=== PATIENT | female | born 1955 | race African-American/Black ===

== ENCOUNTER 2020-04-14 13:07 | Inpatient (IN) | payer MEDICARE, MEDICAID ==
[~2020-04-14] VITALS: Ht 154.9 cm; Wt 69.9 kg
[2020-04-14] MEDS ORDERED: PANTOPRAZOLE 40 MG/10 ML VIAL INJ IV STA (13:22)
[2020-04-14] MEDS ORDERED: SODIUM CHLORIDE 0.9% 500 ML IVB ONE (13:22)
[2020-04-14] MEDS ORDERED: ONDANSETRON HCL 4 MG/2 ML VIAL IV ONE (13:30)
[2020-04-14] MEDS ORDERED: MORPHINE SULFATE 4 MG/ML SYR/VIAL IV ONE (13:30)
[2020-04-14 13:55] LABS: Basophils # (auto) 0 10 ^3/uL (0-0.2); Basophils % (auto) 0.4 % (0.0-2.0); Eosinophils # (auto) 0 10 ^3/uL (0-0.8); Eosinophils % (auto) 0.1 % (0.0-7.0); Hematocrit 45.4 % (36.0-46.0); Lymphocytes # (auto) 0.6 10 ^3/uL (0.4-5.4); Lymphocytes % (auto) 16.2 % (10.0-50.0); Mean Corpuscular Hemoglobin 33.9 pg (28.0-32.0); Mean Corpuscular Volume 102.8 fL (80.0-100.0); Monocytes # (auto) 0.3 10 ^3/uL (0-1.3); Neutrophils # (auto) 2.9 10 ^3/uL (1.6-8.6); Neutrophils % (auto) 74.3 % (37.0-80.0); Nucleated Red Blood Cells % 0.1 %; Platelet Count (auto) 162 10^3/uL (140-450); Red Blood Cells 4.41 10^6/uL (4.0-5.20); Red Cell Distribution Width 14.5 % (11.8-14.3); White Blood Cell 3.9 10^3/uL (4.4-10.8)
[2020-04-14 14:08] LABS: Albumin 3.6 g/dL (3.4-5.0); Calcium 9.4 mg/dL (8.5-10.1); Potassium 4.4 mmol/L (3.5-5.1)
[2020-04-14 14:13] LABS: BUN/Creatinine Ratio 11.3; Total Protein 7.7 g/dL (6.4-8.2)
[2020-04-14] MEDS ORDERED: cefTRIAXone 1GM/50ML D5W 50 ML IV ONE (14:45)
[2020-04-14] MEDS ORDERED: LISINOPRIL 10 MG TAB PO ONE (14:45)
[2020-04-14] MEDS ORDERED: DEXTROSE (50%) 50ML SYRG IV PRN (14:45)
[2020-04-14] MEDS ORDERED: METHOCARBAMOL 500 MG TAB PO PRN (14:45)
[2020-04-14] MEDS ORDERED: metroNIDAZOLE 500MG/100ML 100 ML IV ONE (14:45)
[2020-04-14] MEDS ORDERED: hydrALAZINE HCL 20 MG/ML VL IV PRN (14:45)
[2020-04-14] MEDS ORDERED: ALUM & MAG HYDROX-SIMETH LIQ(MAALOX) 30 ML PO PRN (15:00)
[2020-04-14] MEDS ORDERED: DOCUSATE SOD 100 MG CAP PO PRN (15:00)
[2020-04-14] MEDS ORDERED: NITROGLYCERIN 0.4 MG SL TAB SL PRN (15:00)
[2020-04-14] MEDS ORDERED: MORPHINE SULF INJ 2 MG/ML SYRINGE 1ML IV PRN (15:00)
[2020-04-14] MEDS ORDERED: HYDROcodone-ACET 5/325MG TAB PO PRN (15:00)
[2020-04-14 15:16] LABS: Urine Bacteria NONE SEEN /hpf (None Seen); Urine Blood Negative /uL (Negative); Urine Mucus FEW (None Seen); Urine Specific Gravity 1.017 (1.001-1.035); Urine WBC 2 /hpf (0 - 5)
[2020-04-14 15:24] LABS: Cholesterol 196 mg/dL (< 200); HDL Cholesterol 138 mg/dL (40-59); LDL Cholesterol 47 mg/dL (< 100); Triglycerides 82 mg/dL (< 150)
[2020-04-14] MEDS ORDERED: TIZA2CAP7 PO (15:27)
[2020-04-14] MEDS ORDERED: DOXY100C2 PO (15:27)
[2020-04-14] MEDS ORDERED: CHOL20007 PO (15:27)
[2020-04-14] MEDS ORDERED: IBUP600T27 PO (15:28)
[2020-04-14] MEDS ORDERED: HYDR-531 PO (15:28)
[2020-04-14 15:30] LABS: Alcohol, Urine < 3.0 mg/dL (0-10); Amphetamine Screen, Urine NEGATIVE (NEGATIVE); Barbiturate Scree,Urine NEGATIVE (NEGATIVE); Benzodiazephine Screen, Urine NEGATIVE (NEGATIVE); Cannabinoid Screen, Urine NEGATIVE (NEGATIVE); Cocaine Screen, Urine NEGATIVE (NEGATIVE); Opiate Scree,Urine POSITIVE (NEGATIVE); Phencyclidine Screen, Urine NEGATIVE (NEGATIVE)
[2020-04-14] MEDS: SODIUM CHLORIDE 0.9% 1,000 ML IV SCH (16:00)
[2020-04-14] MEDS: ACCU-CHEK COMFORT CURVE STRIP VI SCH ×2 (17:05→23:12)
[2020-04-14] MEDS: InsuLIN REG 1unit/0.01ml Soln (100units/ml) SC SCH ×2 (17:05→23:12)
--- NOTE | 2020-04-14 20:18 | NUR ---
Telemetry admit from ER TOM COLLINS admitted to Telemetry unit. Patient oriented to Tiffany Mcnally, primary RN, unit, room, bed, and unit policies regarding patient care and visiting hours. Patient now on continuous telemetry monitoring, tele box # [id number] and telemetry reading on arrival to unit is . Patient placed on bedside oxygen, weighed by bedscale and encouraged to call if they need something. All questions and concerns addressed, patient verbalized understanding. Note:
[2020-04-14] MEDS: MORPHINE SULF INJ 2 MG/ML SYRINGE 1ML IV PRN (22:55)
[2020-04-14 22:59] VITALS: BP 141/84
[2020-04-14] MEDS: metroNIDAZOLE 500MG/100ML 100 ML IV SCH (22:59)
[2020-04-14] MEDS: FAMOTIDINE 20 MG TAB PO SCH (23:16)
[2020-04-15] MEDS: LORazepam 0.5 MG TAB PO PRN ×2 (03:07→16:05)
[2020-04-15] MEDS: SODIUM CHLORIDE 0.9% 1,000 ML IV SCH ×2 (04:57→09:32)
[2020-04-15 05:21] VITALS: BP 137/83
[2020-04-15] MEDS: metroNIDAZOLE 500MG/100ML 100 ML IV SCH (05:50)
[2020-04-15] MEDS: ACCU-CHEK COMFORT CURVE STRIP VI SCH (06:39)
[2020-04-15] MEDS: InsuLIN REG 1unit/0.01ml Soln (100units/ml) SC SCH (06:40)
--- NOTE | 2020-04-15 08:05 | NUR ---
Patient in bathroom at this time. Will return for assessment.
[2020-04-15] MEDS ORDERED: cefTRIAXone 1GM/50ML D5W 50 ML IV SCH (09:00)
[2020-04-15 09:01] VITALS: BP 141/89
[2020-04-15] MEDS: FAMOTIDINE 20 MG TAB PO SCH (09:30)
[2020-04-15] MEDS: LISINOPRIL 10 MG TAB PO SCH (09:30)
--- NOTE | 2020-04-15 09:30 | NUR ---
Scheduled po medications and IV abx given per order. Patient stable at this time. Addendum: 04/15/20 at 0934 by ADAN BELLE RN RN Subq med given as well
[2020-04-15] MEDS ORDERED: CHOLECALCIFEROL (VITD3) 2,000 UNIT CAP PO SCH (10:00)
[2020-04-15] MEDS ORDERED: ENOXAPARIN SOD 40 MG/0.4 ML SYRINGE SC SCH (10:00)
--- NOTE | 2020-04-15 11:10 | NUR ---
Patient resting quietly in bed with no distress noted. Scheduled medication given per order. Patient stable.
--- NOTE | 2020-04-15 11:17 | NUR ---
Patient stable with Dr. Serrato at bedside.
[2020-04-15] MEDS ORDERED: PANTOPRAZOLE 40 MG TAB PO ONE (11:45)
[2020-04-15 12:34] VITALS: BP 139/66
--- NOTE | 2020-04-15 13:10 | NUR ---
Patient resting comfortably in bed with no distress noted. Scheduled medication given per order. Patient stable.
[2020-04-15 16:56] VITALS: BP 152/85
--- NOTE | 2020-04-15 18:00 | NUR ---
Patient asleep with no distress noted. Patient stable throughout shift.
--- NOTE | 2020-04-15 19:25 | NUR ---
Opening Shift Note Assumed care of patient. Patient is awake, alert, and oriented X 4. No S/S of respiratory distress noted or reported. On RA. Respirations are regular and non-labored. Bed in lowest position, brakes locked, side rails X 2 up, call light within reach. Instructed on POC and to call for assistance PRN. Will continue to monitor for changes Q1hr and PRN.
[2020-04-15 20:00] VITALS: BP 149/95
[2020-04-15] MEDS: MORPHINE SULF INJ 2 MG/ML SYRINGE 1ML IV PRN (20:01)
[2020-04-15] MEDS: ONDANSETRON HCL 4 MG/2 ML VIAL IV PRN (20:01)
[2020-04-15 21:26] VITALS: BP 149/81
[2020-04-15] MEDS: ACETAMINOPHEN 325 MG TAB PO PRN (23:38)
[2020-04-16] VITALS (7 sets, daily range): BP systolic 142–153; BP diastolic 60–92
[2020-04-16] MEDS: ONDANSETRON HCL 4 MG/2 ML VIAL IV PRN ×2 (05:14→19:46)
[2020-04-16] MEDS: MORPHINE SULF INJ 2 MG/ML SYRINGE 1ML IV PRN ×2 (05:14→19:47)
[2020-04-16 05:34] LABS: Basophils # (auto) 0 10 ^3/uL (0-0.2); Eosinophils # (auto) 0 10 ^3/uL (0-0.8); Monocytes # (auto) 0.3 10 ^3/uL (0-1.3); Neutrophils # (auto) 1.2 10 ^3/uL (1.6-8.6); White Blood Cell 2.4 10^3/uL (4.4-10.8)
[2020-04-16 05:38] LABS: Basophils % (auto) 0.5 % (0.0-2.0); Eosinophils % (auto) 0.9 % (0.0-7.0); Hematocrit 37.8 % (36.0-46.0); Hemoglobin 12.6 g/dL (12.2-16.2); Lymphocytes # (auto) 0.9 10 ^3/uL (0.4-5.4); Lymphocytes % (auto) 36.1 % (10.0-50.0); Mean Corpuscular Hemoglobin 34.3 pg (28.0-32.0); Mean Corpuscular Hgb Conc. 33.3 g/dL (32.0-36.0); Mean Corpuscular Volume 102.9 fL (80.0-100.0); Monocytes % (auto) 13.3 % (0.0-12.0); Neutrophils % (auto) 49.2 % (37.0-80.0); Nucleated Red Blood Cells % 0.3 %; Platelet Count (auto) 130 10^3/uL (140-450); Red Blood Cells 3.67 10^6/uL (4.0-5.20); Red Cell Distribution Width 13.6 % (11.8-14.3)
[2020-04-16 05:57] LABS: Potassium 3.5 mmol/L (3.5-5.1)
[2020-04-16 06:04] LABS: Albumin 2.9 g/dL (3.4-5.0); BUN/Creatinine Ratio 14.7; Bilirubin, Total 0.7 mg/dL (0.2-1.0); Calcium 7.8 mg/dL (8.5-10.1); Total Protein 5.7 g/dL (6.4-8.2)
[2020-04-16] MEDS: SODIUM CHLORIDE 0.9% 1,000 ML IV SCH (07:03)
--- NOTE | 2020-04-16 07:30 | NUR ---
Patient asleep with no distress noted at this time. Patient stable.
--- NOTE | 2020-04-16 08:25 | NUR ---
Patient ambulated to bathroom and back to chair at bedside. Patient stable at this time.
[2020-04-16] MEDS: PANTOPRAZOLE 40 MG TAB PO SCH (09:49)
[2020-04-16] MEDS: LISINOPRIL 10 MG TAB PO SCH (09:50)
--- NOTE | 2020-04-16 09:53 | NUR ---
Patient resting comfortably in bed with no distress noted. Scheduled medications given per order. Patient stable at this time.
[2020-04-16] MEDS ORDERED: FOLIC ACID 1 MG TAB PO ONE (10:30)
[2020-04-16] MEDS ORDERED: THIAMINE HCL 100 MG TAB PO ONE (10:30)
--- NOTE | 2020-04-16 10:52 | NUR ---
Ordered medications given. Patient taken via wheelchair to XR Dept for CT Head.
--- NOTE | 2020-04-16 11:15 | NUR ---
Patient returned to unit in stable condition.
--- NOTE | 2020-04-16 13:35 | NUR ---
Patient ambulated to bathroom and back to bed. Patient stable.
--- NOTE | 2020-04-16 15:00 | NUR ---
Patient resting comfortably in bed; talking on cell phone. No distress noted at this time. Patient stable.
--- NOTE | 2020-04-16 17:15 | NUR ---
RT and patient ambulating in hallway; patient using walker.
--- NOTE | 2020-04-16 19:10 | NUR ---
Opening Shift Note Assumed care of patient. Patient is awake, alert, and oriented X 4. No S/S of respiratory distress noted. On RA. Respirations are regular and non-labored. Patient reports pain in the head 8 out 0f 10 that will be addressed per Dr's order. Bed in lowest position, brakes locked, side rails X 2 up, call light within reach. Instructed on POC and to call for assistance PRN. Will continue to monitor for changes Q1hr and PRN.
[2020-04-16] MEDS: LORazepam 0.5 MG TAB PO PRN (23:31)
[2020-04-16] MEDS: ACETAMINOPHEN 325 MG TAB PO PRN (23:31)
[2020-04-17] MEDS: ONDANSETRON HCL 4 MG/2 ML VIAL IV PRN (04:16)
[2020-04-17] MEDS: MORPHINE SULF INJ 2 MG/ML SYRINGE 1ML IV PRN (04:16)
[2020-04-17 05:00] VITALS: BP 151/88
--- NOTE | 2020-04-17 07:30 | NUR ---
Opening Shift Note Assumed care of patient, awake and alert. No S/S of distress/SOB, reports mild headache pain. Instructed on POC and to call for assist PRN, will continue to monitor for changes Q1hr and PRN.
[2020-04-17 09:00] VITALS: BP 146/85
[2020-04-17] MEDS: PANTOPRAZOLE 40 MG TAB PO SCH (09:48)
[2020-04-17] MEDS: LISINOPRIL 10 MG TAB PO SCH (09:49)
[2020-04-17] MEDS ORDERED: THIAMINE HCL 100 MG TAB PO SCH (10:00)
[2020-04-17] MEDS ORDERED: FOLIC ACID 1 MG TAB PO SCH (10:00)
[2020-04-17] MEDS ORDERED: LORazepam 2MG/ML-1ML VIAL IV ONE (10:30)
[2020-04-17 12:45] VITALS: BP 145/78
[2020-04-17 14:08] VITALS: BP 146/85
--- NOTE | 2020-04-17 15:18 | NUR ---
Discharge instructions given as ordered. Encourage to follow up with PMD as instructed. All questions and concerns addressed. Patient verbalized understanding. Medication reconciliation form completed and copy given to patient. IV removed with catheter intact, pressure dressing applied, shepherd catheter removed. . Patient taken to vehicle via wheelchair with all personal belongings, accompanied by staff TO family member. No distress noted at time of departure.
== END 2020-04-17 15:40 | disposition home or self-care (01) | DRG 392 ==
LOC: ER 13:07 → TELE 13:08 → TELE-CENTR 20:18
PROVIDERS: ADMIT Hospitalist; ATTEND Internal Medicine
DX: K29.70 Gastritis, unspecified, without bleeding (principal); K86.1 Other chronic pancreatitis; K80.20 Calculus of gallbladder without cholecystitis without obstruction; I10 Essential (primary) hypertension; G89.4 Chronic pain syndrome; D69.6 Thrombocytopenia, unspecified; F10.10 Alcohol abuse, uncomplicated; F17.210 Nicotine dependence, cigarettes, uncomplicated; M54.5 Low back pain; Z83.3 Family history of diabetes mellitus; Z82.49 Family history of ischemic heart disease and other diseases of the circulatory system; Z79.899 Other long term (current) drug therapy; Z98.51 Tubal ligation status
CPT/HCPCS: 36415; 70450; 70551; 74176; 76700; 80053; 80061; 80307; 81001; 82962; 83036; 83690; 84484; 85025; 87040; 87086; 96365; 96368; 96375; C9113; G0378; J0696; J2405; J3490

== ENCOUNTER 2020-06-21 12:46 | Inpatient (IN) | payer MEDICARE, MEDICAID ==
[~2020-06-21] VITALS: Ht 157.5 cm; Wt 72.9 kg
[~2020-06-21 12:46] MED LIST: CHOL20007 PO; DOXY100C2 PO; HYDR-531 PO; IBUP600T27 PO; TIZA2CAP7 PO
[2020-06-21 16:07] LABS: Basophils # (auto) 0 10 ^3/uL (0-0.2); Basophils % (auto) 0.5 % (0.0-2.0); Eosinophils # (auto) 0 10 ^3/uL (0-0.8); Eosinophils % (auto) 0.4 % (0.0-7.0); Hematocrit 39.4 % (36.0-46.0); Hemoglobin 12.9 g/dL (12.2-16.2); Lymphocytes # (auto) 1.3 10 ^3/uL (0.4-5.4); Lymphocytes % (auto) 25.7 % (10.0-50.0); Mean Corpuscular Hemoglobin 32.3 pg (28.0-32.0); Mean Corpuscular Hgb Conc. 32.8 g/dL (32.0-36.0); Mean Corpuscular Volume 98.7 fL (80.0-100.0); Monocytes # (auto) 0.5 10 ^3/uL (0-1.3); Monocytes % (auto) 10.7 % (0.0-12.0); Neutrophils # (auto) 3.1 10 ^3/uL (1.6-8.6); Neutrophils % (auto) 62.7 % (37.0-80.0); Nucleated Red Blood Cells % 0.1 %; Platelet Count (auto) 243 10^3/uL (140-450); Red Blood Cells 3.99 10^6/uL (4.0-5.20); Red Cell Distribution Width 14.5 % (11.8-14.3); White Blood Cell 4.9 10^3/uL (4.4-10.8)
[2020-06-21 16:28] LABS: Alanine Aminotransferase 24 U/L (13-56); Albumin 2.9 g/dL (3.4-5.0); Amylase 79 U/L (25-115); Anion Gap 10 (5-15); Aspartate Aminotransferase 32 U/L (15-37); BUN/Creatinine Ratio 9.9; Blood Urea Nitrogen 7 mg/dL (7-18); Calcium 8.9 mg/dL (8.5-10.1); Carbon Dioxide 25 mmol/L (21-32); Chloride 100 mmol/L (98-107); GFR African American 106 mL/min; GFR Non-African American 88 mL/min; Glucose 85 mg/dL (74-106); Lipase 73 U/L (73-393); Potassium 3.9 mmol/L (3.5-5.1); Sodium 135 mmol/L (136-145)
[2020-06-21 16:33] LABS: Alkaline Phosphatase 115 U/L (45-117); Bilirubin, Total 0.7 mg/dL (0.2-1.0); Total Protein 7.3 g/dL (6.4-8.2)
[2020-06-21] MEDS ORDERED: ONDANSETRON HCL 4 MG/2 ML VIAL IV ONE (17:30)
[2020-06-21] MEDS ORDERED: MORPHINE SULF INJ 2 MG/ML SYRINGE 1ML IV ONE (17:30)
[2020-06-21] MEDS ORDERED: NITROGLYCERIN 0.4 MG SL TAB SL PRN (23:30)
[2020-06-21] MEDS ORDERED: DOCUSATE SOD 100 MG CAP PO PRN (23:30)
[2020-06-21] MEDS: D5W/SOD CHLO 0.9% 1,000 ML IV SCH (23:30)
[2020-06-21] MEDS ORDERED: MORPHINE SULF INJ 2 MG/ML SYRINGE 1ML IV PRN (23:30)
[2020-06-21] MEDS ORDERED: HYDROcodone-ACET 5/325MG TAB PO PRN (23:30)
[2020-06-21] MEDS ORDERED: ACETAMINOPHEN 325 MG TAB PO PRN (23:30)
[2020-06-22] VITALS (7 sets, daily range): BP systolic 112–154; BP diastolic 76–94
[2020-06-22] MEDS: MORPHINE SULFATE 4 MG/ML SYR/VIAL IV PRN ×5 (00:15→20:22)
[2020-06-22] MEDS: ONDANSETRON HCL 4 MG/2 ML VIAL IV PRN ×3 (00:15→20:23)
[2020-06-22] MEDS ORDERED: hydrALAZINE HCL 25 MG TAB PO PRN (01:15)
[2020-06-22 02:24] LABS: Basophils # (auto) 0 10 ^3/uL (0-0.2); Basophils % (auto) 0.7 % (0.0-2.0); Eosinophils # (auto) 0 10 ^3/uL (0-0.8); Eosinophils % (auto) 0.8 % (0.0-7.0); Hematocrit 41.2 % (36.0-46.0); Hemoglobin 13.3 g/dL (12.2-16.2); Lymphocytes % (auto) 19.1 % (10.0-50.0); Mean Corpuscular Hemoglobin 32.3 pg (28.0-32.0); Mean Corpuscular Hgb Conc. 32.4 g/dL (32.0-36.0); Mean Corpuscular Volume 99.8 fL (80.0-100.0); Monocytes # (auto) 0.5 10 ^3/uL (0-1.3); Monocytes % (auto) 10.4 % (0.0-12.0); Neutrophils # (auto) 3.5 10 ^3/uL (1.6-8.6); Nucleated Red Blood Cells % 0.1 %; Platelet Count (auto) 224 10^3/uL (140-450); Red Blood Cells 4.13 10^6/uL (4.0-5.20); Red Cell Distribution Width 14.7 % (11.8-14.3); White Blood Cell 5.1 10^3/uL (4.4-10.8)
[2020-06-22] MEDS ORDERED: ASPI-543 PO (02:30)
[2020-06-22 02:40] LABS: BUN/Creatinine Ratio 12.9
[2020-06-22 02:43] LABS: Bilirubin, Total 0.8 mg/dL (0.2-1.0); Total Protein 7.1 g/dL (6.4-8.2)
[2020-06-22] MEDS: PANTOPRAZOLE 40 MG/10 ML VIAL INJ IV SCH (09:34)
[2020-06-22] MEDS: DOCUSATE SOD 100 MG CAP PO SCH ×2 (09:34→20:14)
[2020-06-22] MEDS: ENOXAPARIN SOD 40 MG/0.4 ML SYRINGE SC SCH (09:35)
[2020-06-22] MEDS ORDERED: amLODIPine BESYLATE 5 MG TAB PO SCH (10:00)
[2020-06-22] MEDS: D5W/SOD CHLO 0.9% 1,000 ML IV SCH (12:08)
[2020-06-22] MEDS ORDERED: TEMAZEPAM 15 MG CAP PO PRN (15:00)
[2020-06-22] MEDS ORDERED: GASTROGRAFIN 120 ML SOL ONE (15:17)
[2020-06-22] MEDS ORDERED: DEXTROSE (50%) 50ML SYRG IV PRN (22:30)
[2020-06-22] MEDS ORDERED: FOLIC ACID 1 MG TAB PO ONE (22:30)
[2020-06-22] MEDS ORDERED: MULTIPLE VITAMINS W/ MINERALS TAB PO ONE (22:30)
[2020-06-22] MEDS ORDERED: METHOCARBAMOL 500 MG TAB PO PRN (22:30)
[2020-06-22] MEDS ORDERED: THIAMINE HCL 100 MG TAB PO ONE (22:30)
[2020-06-22] MEDS ORDERED: ACETAMINOPHEN 325 MG TAB PO PRN (22:45)
[2020-06-22] MEDS ORDERED: cefTRIAXone 1GM/50ML D5W 50 ML IV SCH (23:00)
[2020-06-23] MEDS: D5W/SOD CHLO 0.9% 1,000 ML IV SCH (02:10)
[2020-06-23 05:00] VITALS: BP 131/88
[2020-06-23] MEDS: MORPHINE SULFATE 4 MG/ML SYR/VIAL IV PRN (05:05)
[2020-06-23] MEDS: ACCU-CHEK COMFORT CURVE STRIP VI SCH ×2 (06:37→11:29)
[2020-06-23] MEDS: InsuLIN REG 1unit/0.01ml Soln (100units/ml) SC SCH ×2 (06:37→11:30)
[2020-06-23 07:04] LABS: Basophils # (auto) 0 10 ^3/uL (0-0.2); Basophils % (auto) 0.3 % (0.0-2.0); Eosinophils # (auto) 0.1 10 ^3/uL (0-0.8); Eosinophils % (auto) 1.7 % (0.0-7.0); Hemoglobin 11.7 g/dL (12.2-16.2); Lymphocytes # (auto) 0.6 10 ^3/uL (0.4-5.4); Lymphocytes % (auto) 18.6 % (10.0-50.0); Mean Corpuscular Hemoglobin 32.4 pg (28.0-32.0); Mean Corpuscular Hgb Conc. 32.6 g/dL (32.0-36.0); Mean Corpuscular Volume 99.4 fL (80.0-100.0); Monocytes # (auto) 0.5 10 ^3/uL (0-1.3); Monocytes % (auto) 13.6 % (0.0-12.0); Neutrophils # (auto) 2.3 10 ^3/uL (1.6-8.6); Neutrophils % (auto) 65.8 % (37.0-80.0); Nucleated Red Blood Cells % 0.1 %; Platelet Count (auto) 226 10^3/uL (140-450); Red Blood Cells 3.62 10^6/uL (4.0-5.20); Red Cell Distribution Width 14.8 % (11.8-14.3); White Blood Cell 3.4 10^3/uL (4.4-10.8)
[2020-06-23 07:20] LABS: INR 1.13 (0.9-1.15); Partial Thromboplastin Time 29.6 sec (23.0-31.2)
[2020-06-23 07:33] LABS: Potassium 3.5 mmol/L (3.5-5.1)
[2020-06-23 08:00] LABS: Albumin 2.7 g/dL (3.4-5.0); BUN/Creatinine Ratio 13.3; Bilirubin, Total 0.5 mg/dL (0.2-1.0); Calcium 8.8 mg/dL (8.5-10.1); Magnesium 2.1 mg/dL (1.6-2.6); Phosphorus 2.3 mg/dL (2.5-4.90); Total Protein 6.4 g/dL (6.4-8.2)
[2020-06-23] MEDS: PANCREATIC ENZYMES 4200 UNIT CAP PO SCH ×2 (08:00→12:21)
[2020-06-23 09:00] VITALS: BP 128/70
[2020-06-23] MEDS: PANTOPRAZOLE 40 MG/10 ML VIAL INJ IV SCH (09:49)
[2020-06-23] MEDS: DOCUSATE SOD 100 MG CAP PO SCH (09:49)
[2020-06-23] MEDS: ENOXAPARIN SOD 40 MG/0.4 ML SYRINGE SC SCH (09:51)
[2020-06-23] MEDS ORDERED: MULTIPLE VITAMINS W/ MINERALS TAB PO SCH (10:00)
[2020-06-23] MEDS ORDERED: THIAMINE HCL 100 MG TAB PO SCH (10:00)
[2020-06-23] MEDS ORDERED: CHOLECALCIFEROL (VITD3) 2,000 UNIT CAP PO SCH (10:00)
[2020-06-23] MEDS ORDERED: LISINOPRIL 20 MG TAB PO SCH (10:00)
[2020-06-23] MEDS ORDERED: ASPirin 81 mg TAB PO SCH (10:00)
[2020-06-23] MEDS ORDERED: FOLIC ACID 1 MG TAB PO SCH (10:00)
[2020-06-23 13:00] VITALS: BP 126/97
[2020-06-23 14:57] VITALS: BP 131/65
[2020-06-23] MEDS ORDERED: ATORVASTATIN 20 MG TAB PO SCH (22:00)
== END 2020-06-23 16:00 | disposition home or self-care (01) | DRG 389 ==
LOC: ER 12:46 → OVERFLOW 12:47 → EAST 06-22 01:05 → CENTRAL 06-22 13:14
PROVIDERS: ADMIT Nurse Practitioner Family; ATTEND Internal Medicine Nephrology
DX: K56.7 Ileus, unspecified (principal); K86.1 Other chronic pancreatitis; N39.0 Urinary tract infection, site not specified; F10.99 Alcohol use, unspecified with unspecified alcohol-induced disorder; K56.609 Unspecified intestinal obstruction, unspecified as to partial versus complete obstruction; D25.9 Leiomyoma of uterus, unspecified; E11.9 Type 2 diabetes mellitus without complications; F17.210 Nicotine dependence, cigarettes, uncomplicated; I10 Essential (primary) hypertension; I70.0 Atherosclerosis of aorta; M51.37 Other intervertebral disc degeneration, lumbosacral region; Z20.828 Contact with and (suspected) exposure to other viral communicable diseases; M19.90 Unspecified osteoarthritis, unspecified site; E66.9 Obesity, unspecified; G89.4 Chronic pain syndrome; Y90.9 Presence of alcohol in blood, level not specified; Z82.49 Family history of ischemic heart disease and other diseases of the circulatory system; Z83.3 Family history of diabetes mellitus; Z90.49 Acquired absence of other specified parts of digestive tract; Z79.899 Other long term (current) drug therapy; Z68.29 Body mass index [BMI] 29.0-29.9, adult
CPT/HCPCS: 36415; 71045; 74176; 74250; 80053; 80061; 80320; 82150; 82962; 83036; 83690; 83735; 84100; 84443; 84484; 85025; 85610; 85730; 87040; 87070; 87081; 87086; 87426; 87804; 87880; 93005; 96365; 96375; C9113; G0378; J0696; J2405; J7042

== ENCOUNTER 2022-05-26 17:07 | Emergency (ER) | payer OTHER, MEDICAID ==
[~2022-05-26] VITALS: Ht 165.1 cm; Wt 65.4 kg
[~2022-05-26 17:07] MED LIST changes: +ASPI-543 PO; -DOXY100C2 PO; -HYDR-531 PO; -IBUP600T27 PO; -TIZA2CAP7 PO
[2022-05-26 20:34] LABS: Basophils # (auto) 0 10 ^3/uL (0-0.2); Basophils % (auto) 0.7 % (0.0-2.0); Eosinophils # (auto) 0 10 ^3/uL (0-0.8); Eosinophils % (auto) 0.9 % (0.0-7.0); Hematocrit 35.7 % (36.0-46.0); Hemoglobin 11.6 g/dL (12.2-16.2); Lymphocytes # (auto) 0.9 10 ^3/uL (0.4-5.4); Lymphocytes % (auto) 36.5 % (10.0-50.0); Mean Corpuscular Hemoglobin 29.7 pg (28.0-32.0); Mean Corpuscular Hgb Conc. 32.6 g/dL (32.0-36.0); Mean Corpuscular Volume 91.3 fL (80.0-100.0); Monocytes # (auto) 0.4 10 ^3/uL (0-1.3); Monocytes % (auto) 16.4 % (0.0-12.0); Neutrophils # (auto) 1.2 10 ^3/uL (1.6-8.6); Neutrophils % (auto) 45.5 % (37.0-80.0); Nucleated Red Blood Cells % 0.6 %; Red Blood Cells 3.91 10^6/uL (4.0-5.20); Red Cell Distribution Width 18.1 % (11.8-14.3); White Blood Cell 2.6 10^3/uL (4.4-10.8)
[2022-05-26 20:43] LABS: Albumin 3.4 g/dL (3.4-5.0); Calcium 8.8 mg/dL (8.5-10.1); Potassium 4.7 mmol/L (3.5-5.1)
[2022-05-26 20:47] LABS: BUN/Creatinine Ratio 14.3; Bilirubin, Total 0.6 mg/dL (0.2-1.0); Total Protein 6.7 g/dL (6.4-8.2)
[2022-05-27 01:23] VITALS: BP 139/84
[2022-05-27] MEDS ORDERED: PERCOT PO (02:26)
== END 2022-05-27 02:52 | disposition home or self-care (01) ==
LOC: EDUNIT# 17:07 → ER 17:07
DX: R53.1 Weakness (principal); G89.29 Other chronic pain; R51.9 Headache, unspecified; I10 Essential (primary) hypertension; E11.9 Type 2 diabetes mellitus without complications; F17.210 Nicotine dependence, cigarettes, uncomplicated; Z79.82 Long term (current) use of aspirin; Z79.899 Other long term (current) drug therapy
CPT/HCPCS: 36415; 70450; 74176; 80053; 83690; 84484; 85025; 93005

== ENCOUNTER → 2022-06-30 | Outpatient (CLI) | payer OTHER, MEDICAID ==
[~2022-06-30] MED LIST changes: +PERCOT PO
== END | disposition home or self-care (01) ==
LOC: US 10:42
DX: K11.8 Other diseases of salivary glands (principal)
CPT/HCPCS: 10005; 76536; 76942

== ENCOUNTER 2022-11-27 15:46 | Emergency (ER) | payer OTHER, MEDICAID ==
[~2022-11-27] VITALS: Ht 154.9 cm; Wt 69.6 kg
[2022-11-27 16:30] VITALS: BP 94/57
[2022-11-27] MEDS ORDERED: SODIUM CHLORIDE 0.9% 1,000 ML IV ONE (17:00)
[2022-11-27 17:28] LABS: Basophils # (auto) 0 10 ^3/uL (0-0.2); Basophils % (auto) 0.7 % (0.0-2.0); Eosinophils # (auto) 0 10 ^3/uL (0-0.8); Eosinophils % (auto) 1.5 % (0.0-7.0); Hematocrit 32.2 % (36.0-46.0); Hemoglobin 10.4 g/dL (12.2-16.2); Lymphocytes # (auto) 0.8 10 ^3/uL (0.4-5.4); Lymphocytes % (auto) 29.3 % (10.0-50.0); Mean Corpuscular Hemoglobin 32.3 pg (28.0-32.0); Mean Corpuscular Hgb Conc. 32.3 g/dL (32.0-36.0); Mean Corpuscular Volume 99.8 fL (80.0-100.0); Monocytes # (auto) 0.3 10 ^3/uL (0-1.3); Monocytes % (auto) 12.7 % (0.0-12.0); Neutrophils # (auto) 1.4 10 ^3/uL (1.6-8.6); Neutrophils % (auto) 55.8 % (37.0-80.0); Nucleated Red Blood Cells % 0.1 %; Red Blood Cells 3.22 10^6/uL (4.0-5.20); Red Cell Distribution Width 17.2 % (11.8-14.3); White Blood Cell 2.6 10^3/uL (4.4-10.8)
[2022-11-27 18:21] LABS: Albumin 2.8 g/dL (3.4-5.0); BUN/Creatinine Ratio 14.3 (10.0-20.0); Calcium 8.1 mg/dL (8.5-10.1); Potassium 4.9 mmol/L (3.5-5.1)
[2022-11-27 18:24] LABS: Bilirubin, Total 0.2 mg/dL (0.2-1.0); Total Protein 5.9 g/dL (6.4-8.2)
== END 2022-11-27 23:02 | disposition left against medical advice (07) ==
LOC: ER 15:46
DX: R03.1 Nonspecific low blood-pressure reading (principal); R06.02 Shortness of breath; Z53.21 Procedure and treatment not carried out due to patient leaving prior to being seen by health care provider
CPT/HCPCS: 36415; 80053; 83880; 84484; 85025; 93005

== ENCOUNTER 2023-03-30 00:44 | Inpatient (IN) | payer OTHER, MEDICAID ==
[~2023-03-30] VITALS: Ht 154.9 cm; Wt 68.6 kg
[2023-03-30] VITALS (62 sets, daily range): BP systolic 82–152; BP diastolic 40–94; PULSE 77–129; RESP 14–26; TEMP 96.8–98.1; O2SAT 93–100
[2023-03-30] MEDS ORDERED: MIDAZOLAM HCL 5 MG/ML-1ML VIAL IV ONE (01:45)
[2023-03-30] MEDS ORDERED: ETOMIDATE (2MG/ML) 20ML VIAL IV ONE (01:45)
[2023-03-30] MEDS ORDERED: ROCURONIUM 10MG/ML 10ML VIAL IV ONE ×2 (01:45→01:50)
[2023-03-30 01:53] LABS: Hematocrit 34.3 % (36.0-46.0); Hemoglobin 11.1 g/dL (12.2-16.2); Mean Corpuscular Hemoglobin 34.1 pg (28.0-32.0); Mean Corpuscular Hgb Conc. 32.5 g/dL (32.0-36.0); Mean Corpuscular Volume 104.9 fL (80.0-100.0); Red Blood Cells 3.27 10^6/uL (4.0-5.20); Red Cell Distribution Width 17.2 % (11.8-14.3); White Blood Cell 6.1 10^3/uL (4.4-10.8)
[2023-03-30] MEDS: MIDAZOLAM DRIP 50 mg/50mL 50 ML IV SCH ×2 (02:00→17:52)
[2023-03-30] MEDS ORDERED: MIDAZOLAM DRIP 50 mg/50mL 50 ML IV ONE (02:00)
[2023-03-30] MEDS ORDERED: MIDAZOLAM HCL 5 MG/ML-1ML VIAL ONE (02:01)
[2023-03-30 02:06] LABS: Basophils % (manual) 0 (0.0-2.0); Blast Cells 0; Eosinophils % (manual) 0 (0-7); Metamyelocytes % 0; Promyelocytes % 0; Reactive Lymphocytes 0
[2023-03-30 02:12] LABS: Lactic Acid w/Reflex 2.8 mmol/L (0.4-2.0)
[2023-03-30] MEDS ORDERED: MIDAZOLAM DRIP 50 mg/50mL 50 ML IV SCH (02:15)
[2023-03-30 02:17] LABS: Albumin 1.1 g/dL (3.4-5.0); Calcium 7.5 mg/dL (8.5-10.1); Potassium 3.7 mmol/L (3.5-5.1)
[2023-03-30 02:28] LABS: Total Protein 4.3 g/dL (6.4-8.2)
[2023-03-30] MEDS: NOREPINEPHRINE 8 MG/250ML KIT 250 ML IV SCH ×3 (02:30→19:09)
[2023-03-30] MEDS ORDERED: PIPERACILLIN-TAZOB 3.375GM 100 ML IV ONE (03:15)
[2023-03-30] MEDS ORDERED: VANCOMYCIN 1GM/250ML 250 ML IV ONE (03:15)
[2023-03-30 03:24] LABS: Anisocytosis Slight; Band Neutrophils % (manual) 3; Lymphocytes % (manual) 11 (10.0-50.0); Macrocytosis Slight; Monocytes % (manual) 13 (0-12); Myelocytes % 1
[2023-03-30 03:25] LABS: Platelet Estimate Adequate
[2023-03-30 03:26] LABS: Large Platelets FEW; Target Cell FEW
[2023-03-30 03:32] LABS: Urine Bacteria NONE SEEN /hpf (None Seen); Urine Blood Negative /uL (Negative); Urine Clarity HAZY (Clear); Urine Color Brown (Yellow); Urine Hyaline Cast MANY /lpf (0 - 2); Urine Mucus FEW (None Seen); Urine Protein, UAD 1+ (Negative); Urine Specific Gravity 1.025 (1.001-1.035); Urine WBC 6 /hpf (0 - 5)
[2023-03-30] MEDS ORDERED: ALBUTEROL SULF 2.5 MG/0.5ML(0.5%) NEB SOLN NEB PRN (05:15)
[2023-03-30] MEDS ORDERED: ONDANSETRON HCL 4 MG/2 ML VIAL IV PRN (05:15)
[2023-03-30] MEDS ORDERED: MORPHINE SULFATE INJ 2 MG/ml SYRG IV PRN (05:15)
[2023-03-30] MEDS ORDERED: SODIUM CHLORIDE 0.9% 1,000 ML IV ONE (05:15)
[2023-03-30] MEDS ORDERED: NITROGLYCERIN 0.4 MG SL TAB SL PRN (05:15)
[2023-03-30] MEDS ORDERED: SODIUM CHLORIDE 0.9% 1,000 ML IV SCH ×2 (05:15→08:15)
[2023-03-30] MEDS ORDERED: cefTRIAXone 1GM/50ML D5W 50 ML IV SCH (05:38)
[2023-03-30] MEDS: InsuLIN REG 1unit/0.01ml Soln (100units/ml) SC SCH ×3 (06:11→18:45)
[2023-03-30] MEDS: ACCU-CHEK COMFORT CURVE STRIP VI SCH ×3 (06:11→18:44)
[2023-03-30] MEDS ORDERED: AZITHROMYCIN 500MG/ 250ML 250 ML IV SCH (06:15)
[2023-03-30 06:22] LABS: Base Excess -4.8 mmol/L (-2.0-2.0)
[2023-03-30 08:35] LABS: BUN/Creatinine Ratio 10.9 (10.0-20.0); Calcium 7.7 mg/dL (8.5-10.1); Potassium 3.7 mmol/L (3.5-5.1)
[2023-03-30] MEDS: PANTOPRAZOLE 40 MG/10 ML VIAL INJ IV SCH (10:15)
[2023-03-30] MEDS: SODIUM CHLORIDE 0.9% 1,000 ML IV SCH ×2 (10:54→16:30)
[2023-03-30] MEDS: VASOPRESSIN 20 UNITS in SODIUM CHL 0.9% 99 ML IV SCH ×2 (11:10→22:28)
[2023-03-30] MEDS ORDERED: Glucerna 1.2 Cal 1Liter BOTTLE GT SCH (11:15)
[2023-03-30] MEDS: IPRATROPIUM BROM 0.5 MG/2.5ML INH SOL NEB SCH ×2 (12:50→18:08)
[2023-03-30] MEDS: ALBUTEROL SULF 2.5 MG/0.5ML(0.5%) NEB SOLN NEB SCH ×2 (12:50→18:08)
[2023-03-30] MEDS: CEFEPIME 1GM/ 50ML 50 ML IV SCH (12:50)
[2023-03-30] MEDS: EPINEPHrine HCL 250 ML IV SCH (14:30)
[2023-03-30] MEDS ORDERED: SODIUM CHLORIDE 0.9% 500 ML IV ONE ×3 (14:30→19:15)
[2023-03-30] MEDS: HYDROCORTISONE SOD SUCC 100 MG/2ML INJ VIAL IV SCH (22:32)
[2023-03-30] MEDS: LINEZOLID 600MG/300ML 300 ML IV SCH (22:33)
[2023-03-31] VITALS (102 sets, daily range): BP systolic 88–154; BP diastolic 48–94; PULSE 90–131; RESP 15–27; TEMP 96.8–98.2; O2SAT 71–100
[2023-03-31] MEDS: ALBUTEROL SULF 2.5 MG/0.5ML(0.5%) NEB SOLN NEB SCH ×4 (00:16→19:05)
[2023-03-31] MEDS: IPRATROPIUM BROM 0.5 MG/2.5ML INH SOL NEB SCH ×4 (00:16→19:05)
[2023-03-31] MEDS: ACCU-CHEK COMFORT CURVE STRIP VI SCH ×5 (00:16→23:54)
[2023-03-31] MEDS: InsuLIN REG 1unit/0.01ml Soln (100units/ml) SC SCH ×5 (00:18→23:57)
[2023-03-31] MEDS: MIDAZOLAM DRIP 50 mg/50mL 50 ML IV SCH ×5 (02:07→21:20)
[2023-03-31] MEDS: NOREPINEPHRINE 8 MG/250ML KIT 250 ML IV SCH ×3 (02:08→21:20)
[2023-03-31 04:09] LABS: Basophils # (auto) 0 10 ^3/uL (0-0.2); Eosinophils # (auto) 0 10 ^3/uL (0-0.8); Lymphocytes # (auto) 0.5 10 ^3/uL (0.4-5.4); Mean Corpuscular Volume 103.9 fL (80.0-100.0); White Blood Cell 11.1 10^3/uL (4.4-10.8)
[2023-03-31 04:11] LABS: Basophils % (auto) 0.1 % (0.0-2.0); Hematocrit 36.8 % (36.0-46.0); Lymphocytes % (auto) 4.1 % (10.0-50.0); Mean Corpuscular Hemoglobin 33.8 pg (28.0-32.0); Mean Corpuscular Hgb Conc. 32.6 g/dL (32.0-36.0); Monocytes # (auto) 0.6 10 ^3/uL (0-1.3); Monocytes % (auto) 5.3 % (0.0-12.0); Neutrophils # (auto) 10.1 10 ^3/uL (1.6-8.6); Neutrophils % (auto) 90.5 % (37.0-80.0); Nucleated Red Blood Cells % 0.7 %; Red Blood Cells 3.54 10^6/uL (4.0-5.20); Red Cell Distribution Width 16.9 % (11.8-14.3)
[2023-03-31 04:26] LABS: Albumin 1.2 g/dL (3.4-5.0); Calcium 6.8 mg/dL (8.5-10.1)
[2023-03-31 04:28] LABS: BUN/Creatinine Ratio 13.6 (10.0-20.0)
[2023-03-31 04:30] LABS: Bilirubin, Total 1.1 mg/dL (0.2-1.0); Total Protein 4.7 g/dL (6.4-8.2)
[2023-03-31] MEDS ORDERED: ATOR20TA PO (06:00)
[2023-03-31] MEDS ORDERED: CHOL20007 PO (06:00)
[2023-03-31] MEDS ORDERED: TRAZ-181 PO (06:00)
[2023-03-31] MEDS ORDERED: MECL1TAB31 PO (06:13)
[2023-03-31] MEDS ORDERED: LISI20TA56 PO (06:13)
[2023-03-31] MEDS ORDERED: ZOFR4T PO (06:13)
[2023-03-31] MEDS ORDERED: FOLITAB22 PO (06:13)
[2023-03-31] MEDS ORDERED: TIZA2CAP PO (06:13)
[2023-03-31] MEDS ORDERED: POTASSIUM CHL 20MEQ/100ML 100 ML IV ONE (06:15)
[2023-03-31] MEDS: SODIUM CHLORIDE 0.9% 1,000 ML IV SCH ×3 (06:40→18:26)
[2023-03-31] MEDS: fentaNYL Drip 2500mCg/250mlNS 250 ML IV SCH (06:45)
[2023-03-31] MEDS: VASOPRESSIN 20 UNITS in SODIUM CHL 0.9% 99 ML IV SCH ×2 (08:59→20:06)
[2023-03-31] MEDS ORDERED: IBU600T PO (09:32)
[2023-03-31] MEDS ORDERED: FURO1TAB33 PO (09:32)
[2023-03-31] MEDS ORDERED: SULF400T11 PO (09:32)
[2023-03-31] MEDS ORDERED: FAMO20TA10 PO (09:32)
[2023-03-31] MEDS ORDERED: METF-370 PO (09:32)
[2023-03-31] MEDS ORDERED: DOXY100C4 PO (09:32)
[2023-03-31] MEDS ORDERED: LACT10SO3 PO (09:32)
[2023-03-31] MEDS: PANTOPRAZOLE 40 MG/10 ML VIAL INJ IV SCH (09:46)
[2023-03-31] MEDS: HYDROCORTISONE SOD SUCC 100 MG/2ML INJ VIAL IV SCH ×2 (09:46→21:14)
[2023-03-31] MEDS: LINEZOLID 600MG/300ML 300 ML IV SCH ×2 (09:46→21:14)
[2023-03-31] MEDS: CEFEPIME 1GM/ 50ML 50 ML IV SCH (12:27)
[2023-03-31] MEDS: EPINEPHrine HCL 250 ML IV SCH (14:30)
[2023-03-31] MEDS: POTASSIUM CHL 20MEQ/100ML 100 ML IV SCH ×2 (15:03→18:03)
[2023-03-31] MEDS: Glucerna 1.2 Cal 1Liter BOTTLE GT SCH (16:32)
[2023-03-31 16:33] LABS: BUN/Creatinine Ratio 14.7 (10.0-20.0); Potassium 3.4 mmol/L (3.5-5.1)
[2023-04-01] VITALS (109 sets, daily range): BP systolic 87–128; BP diastolic 50–76; PULSE 91–134; RESP 14–18; TEMP 96.6–99; O2SAT 91–100
[2023-04-01] MEDS: ALBUTEROL SULF 2.5 MG/0.5ML(0.5%) NEB SOLN NEB SCH ×2 (00:25→06:15)
[2023-04-01] MEDS: IPRATROPIUM BROM 0.5 MG/2.5ML INH SOL NEB SCH ×4 (00:25→18:46)
[2023-04-01] MEDS: MIDAZOLAM DRIP 50 mg/50mL 50 ML IV SCH ×4 (00:58→19:00)
[2023-04-01] MEDS: SODIUM BICARBONATE 50ML VIAL 50 ML in SOD CHL 0.45% 1,000 ML IV SCH ×2 (02:30→12:44)
[2023-04-01] MEDS: fentaNYL Drip 2500mCg/250mlNS 250 ML IV SCH ×2 (02:33→21:50)
[2023-04-01] MEDS: SODIUM CHLORIDE 0.9% 1,000 ML IV SCH (02:35)
[2023-04-01 04:18] LABS: Basophils # (auto) 0 10 ^3/uL (0-0.2); Eosinophils # (auto) 0 10 ^3/uL (0-0.8); Hemoglobin 10.8 g/dL (12.2-16.2); Lymphocytes # (auto) 0.5 10 ^3/uL (0.4-5.4)
[2023-04-01 04:21] LABS: Basophils % (auto) 0.3 % (0.0-2.0); Hematocrit 33.6 % (36.0-46.0); Lymphocytes % (auto) 4.1 % (10.0-50.0); Mean Corpuscular Hemoglobin 33.9 pg (28.0-32.0); Mean Corpuscular Hgb Conc. 32.3 g/dL (32.0-36.0); Monocytes # (auto) 0.6 10 ^3/uL (0-1.3); Monocytes % (auto) 5.3 % (0.0-12.0); Neutrophils # (auto) 10.7 10 ^3/uL (1.6-8.6); Neutrophils % (auto) 90.3 % (37.0-80.0); Nucleated Red Blood Cells % 0.8 %; Red Cell Distribution Width 17.1 % (11.8-14.3); White Blood Cell 11.8 10^3/uL (4.4-10.8)
[2023-04-01 04:39] LABS: Calcium 6.7 mg/dL (8.5-10.1); Potassium 3.8 mmol/L (3.5-5.1)
[2023-04-01 04:43] LABS: BUN/Creatinine Ratio 18.2 (10.0-20.0); Total Protein 4.5 g/dL (6.4-8.2)
[2023-04-01] MEDS: InsuLIN REG 1unit/0.01ml Soln (100units/ml) SC SCH ×3 (05:19→18:12)
[2023-04-01] MEDS: ACCU-CHEK COMFORT CURVE STRIP VI SCH ×3 (05:19→18:06)
[2023-04-01 07:44] LABS: Base Excess -7.1 mmol/L (-2.0-2.0)
[2023-04-01] MEDS ORDERED: SOD CHL 0.45% 1,000 ML IV SCH ×2 (08:00→08:15)
[2023-04-01] MEDS: VASOPRESSIN 20 UNITS in SODIUM CHL 0.9% 99 ML IV SCH ×2 (08:02→18:57)
[2023-04-01] MEDS: HYDROCORTISONE SOD SUCC 100 MG/2ML INJ VIAL IV SCH ×2 (09:33→22:03)
[2023-04-01] MEDS: PANTOPRAZOLE 40 MG/10 ML VIAL INJ IV SCH (09:34)
[2023-04-01] MEDS: LINEZOLID 600MG/300ML 300 ML IV SCH ×2 (09:37→22:04)
[2023-04-01] MEDS ORDERED: BUMETANIDE 2.5mg/10ml (0.25 mg/ml) INJ IV SCH (09:45)
[2023-04-01] MEDS ORDERED: CEFEPIME 1GM/ 50ML 50 ML IV SCH (10:00)
[2023-04-01] MEDS: LEVALBUTEROL HCL 1.25 MG/3 ML NEB NEB SCH ×2 (11:40→18:46)
[2023-04-01] MEDS: FREE WATER GT SCH ×2 (12:00→18:00)
[2023-04-01] MEDS: ALBUMIN 25% 100 ML IV SCH ×2 (12:06→18:57)
[2023-04-01 12:11] LABS: Creatinine, Urine 50 mg/dL (30.0-125.0); Sodium Urine 5 mmol/L (40-220)
[2023-04-01] MEDS: NOREPINEPHRINE 8 MG/250ML KIT 250 ML IV SCH (12:44)
[2023-04-01] MEDS ORDERED: METOPROLOL TARTRATE 1MG/1ML-5ML VIAL IV ONE ×2 (13:07→13:15)
[2023-04-01] MEDS: EPINEPHrine HCL 250 ML IV SCH (14:30)
[2023-04-01] MEDS: METOCLOPRAMIDE HCL 5MG/ml INJ 2ml VIAL IV SCH ×2 (15:36→22:03)
[2023-04-01] MEDS: BUMETANIDE 1mg/4ml VIAL (0.25mg/ml) IV SCH (22:03)
[2023-04-01] MEDS: CEFEPIME 2GM/50ML NS 50 ML IV SCH (22:04)
[2023-04-02] VITALS (103 sets, daily range): BP systolic 86–131; BP diastolic 46–83; PULSE 96–125; RESP 11–21; TEMP 97.4–98.2; O2SAT 50–100
[2023-04-02] MEDS: IPRATROPIUM BROM 0.5 MG/2.5ML INH SOL NEB SCH ×4 (00:03→18:02)
[2023-04-02] MEDS: LEVALBUTEROL HCL 1.25 MG/3 ML NEB NEB SCH ×4 (00:03→18:02)
[2023-04-02] MEDS: ACCU-CHEK COMFORT CURVE STRIP VI SCH ×4 (00:21→17:08)
[2023-04-02] MEDS: InsuLIN REG 1unit/0.01ml Soln (100units/ml) SC SCH ×4 (00:23→17:08)
[2023-04-02] MEDS: ALBUMIN 25% 100 ML IV SCH (01:55)
[2023-04-02] MEDS: MIDAZOLAM DRIP 50 mg/50mL 50 ML IV SCH ×3 (01:56→21:26)
[2023-04-02 04:14] LABS: Basophils # (auto) 0 10 ^3/uL (0-0.2); Eosinophils # (auto) 0 10 ^3/uL (0-0.8); Lymphocytes # (auto) 0.3 10 ^3/uL (0.4-5.4); Mean Corpuscular Hemoglobin 34.5 pg (28.0-32.0); Neutrophils # (auto) 7.7 10 ^3/uL (1.6-8.6); White Blood Cell 8.5 10^3/uL (4.4-10.8)
[2023-04-02 04:23] LABS: Potassium 3.2 mmol/L (3.5-5.1)
[2023-04-02 04:25] LABS: Basophils % (auto) 0.1 % (0.0-2.0); Hematocrit 25.6 % (36.0-46.0); Hemoglobin 8.4 g/dL (12.2-16.2); Lymphocytes % (auto) 3.6 % (10.0-50.0); Mean Corpuscular Hgb Conc. 32.6 g/dL (32.0-36.0); Mean Corpuscular Volume 105.8 fL (80.0-100.0); Monocytes # (auto) 0.4 10 ^3/uL (0-1.3); Neutrophils % (auto) 91.3 % (37.0-80.0); Nucleated Red Blood Cells % 0.7 %; Red Blood Cells 2.42 10^6/uL (4.0-5.20); Red Cell Distribution Width 17.8 % (11.8-14.3)
[2023-04-02 04:31] LABS: Albumin 2.7 g/dL (3.4-5.0); BUN/Creatinine Ratio 21.2 (10.0-20.0); Bilirubin, Total 1.7 mg/dL (0.2-1.0); Calcium 7.4 mg/dL (8.5-10.1); Total Protein 4.8 g/dL (6.4-8.2)
[2023-04-02] MEDS: VASOPRESSIN 20 UNITS in SODIUM CHL 0.9% 99 ML IV SCH ×2 (05:27→12:01)
[2023-04-02] MEDS: METOCLOPRAMIDE HCL 5MG/ml INJ 2ml VIAL IV SCH (05:54)
[2023-04-02] MEDS: FREE WATER GT SCH ×4 (05:54→12:01)
[2023-04-02 07:36] LABS: Base Excess -4.9 mmol/L (-2.0-2.0)
[2023-04-02] MEDS: PANTOPRAZOLE 40 MG/10 ML VIAL INJ IV SCH (08:06)
[2023-04-02] MEDS: HYDROCORTISONE SOD SUCC 100 MG/2ML INJ VIAL IV SCH ×2 (08:06→21:51)
[2023-04-02] MEDS: BUMETANIDE 1mg/4ml VIAL (0.25mg/ml) IV SCH ×2 (08:06→21:52)
[2023-04-02] MEDS: LINEZOLID 600MG/300ML 300 ML IV SCH ×2 (08:07→20:12)
[2023-04-02] MEDS: CEFEPIME 2GM/50ML NS 50 ML IV SCH ×2 (08:08→21:51)
[2023-04-02] MEDS: POTASSIUM CHL 20MEQ/100ML 100 ML IV SCH ×2 (10:22→11:56)
[2023-04-02] MEDS: EPINEPHrine HCL 250 ML IV SCH (12:01)
[2023-04-02] MEDS: SODIUM BICARBONATE 50ML VIAL 50 ML in SOD CHL 0.45% 1,000 ML IV SCH (14:48)
[2023-04-02] MEDS: fentaNYL Drip 2500mCg/250mlNS 250 ML IV SCH (14:53)
[2023-04-02] MEDS: NOREPINEPHRINE 8 MG/250ML KIT 250 ML IV SCH (15:25)
[2023-04-02 22:58] LABS: Base Excess -4.6 mmol/L (-2.0-2.0)
[2023-04-03] VITALS (108 sets, daily range): BP systolic 66–157; BP diastolic 34–93; PULSE 102–135; RESP 9–20; TEMP 97.8–98.5; O2SAT 75–100
[2023-04-03] MEDS: IPRATROPIUM BROM 0.5 MG/2.5ML INH SOL NEB SCH ×4 (00:10→18:23)
[2023-04-03] MEDS: LEVALBUTEROL HCL 1.25 MG/3 ML NEB NEB SCH ×4 (00:10→18:23)
[2023-04-03] MEDS: MIDAZOLAM DRIP 50 mg/50mL 50 ML IV SCH ×6 (00:18→21:07)
[2023-04-03] MEDS: ACCU-CHEK COMFORT CURVE STRIP VI SCH ×4 (00:18→18:26)
[2023-04-03] MEDS: InsuLIN REG 1unit/0.01ml Soln (100units/ml) SC SCH ×4 (00:20→18:28)
[2023-04-03 00:48] LABS: Albumin 2.1 g/dL (3.4-5.0); BUN/Creatinine Ratio 22.6 (10.0-20.0); Potassium 3.6 mmol/L (3.5-5.1)
[2023-04-03 00:50] LABS: Phosphorus 2.3 mg/dL (2.5-4.90); Total Protein 4.5 g/dL (6.4-8.2)
[2023-04-03 01:04] LABS: Basophils # (auto) 0 10 ^3/uL (0-0.2); Eosinophils # (auto) 0 10 ^3/uL (0-0.8); Hematocrit 29.8 % (36.0-46.0); Hemoglobin 9.8 g/dL (12.2-16.2); Lymphocytes # (auto) 0.2 10 ^3/uL (0.4-5.4); Red Cell Distribution Width 17.6 % (11.8-14.3); White Blood Cell 10.8 10^3/uL (4.4-10.8)
[2023-04-03 01:08] LABS: Basophils % (auto) 0.2 % (0.0-2.0); Lymphocytes % (auto) 1.7 % (10.0-50.0); Mean Corpuscular Hemoglobin 34.4 pg (28.0-32.0); Mean Corpuscular Volume 104.5 fL (80.0-100.0); Monocytes # (auto) 0.6 10 ^3/uL (0-1.3); Monocytes % (auto) 5.6 % (0.0-12.0); Neutrophils % (auto) 92.5 % (37.0-80.0); Nucleated Red Blood Cells % 1.3 %; Red Blood Cells 2.85 10^6/uL (4.0-5.20)
[2023-04-03] MEDS ORDERED: FUROSEMIDE 40 MG/4 ML VIAL IV ONE (01:15)
[2023-04-03] MEDS: fentaNYL Drip 2500mCg/250mlNS 250 ML IV SCH ×3 (03:27→20:36)
[2023-04-03] MEDS: VASOPRESSIN 20 UNITS in SODIUM CHL 0.9% 99 ML IV SCH ×2 (03:41→14:48)
[2023-04-03] MEDS: SODIUM BICARBONATE 50ML VIAL 50 ML in SOD CHL 0.45% 1,000 ML IV SCH (03:45)
[2023-04-03] MEDS: NOREPINEPHRINE 8 MG/250ML KIT 250 ML IV SCH ×2 (05:19→20:37)
[2023-04-03] MEDS: FREE WATER GT SCH ×4 (05:20→17:36)
[2023-04-03] MEDS ORDERED: MAGNESIUM SULFATE 1GM/100ML 100 ML IV ONE (06:45)
[2023-04-03 07:05] LABS: Base Excess -2.6 mmol/L (-2.0-2.0)
[2023-04-03] MEDS: BUMETANIDE 1mg/4ml VIAL (0.25mg/ml) IV SCH ×2 (10:18→22:00)
[2023-04-03] MEDS: LINEZOLID 600MG/300ML 300 ML IV SCH ×2 (10:19→22:01)
[2023-04-03] MEDS: PANTOPRAZOLE 40 MG/10 ML VIAL INJ IV SCH (10:19)
[2023-04-03] MEDS: HYDROCORTISONE SOD SUCC 100 MG/2ML INJ VIAL IV SCH ×2 (10:20→22:01)
[2023-04-03] MEDS ORDERED: POTASSIUM PHOSPHATE 22 MEQ in SODIUM CHL 0.9% 100 ML IV ONE (10:45)
[2023-04-03] MEDS: MAGNESIUM SULFATE 1GM/100ML 100 ML IV SCH ×2 (11:35→12:26)
[2023-04-03] MEDS: CEFEPIME 2GM/50ML NS 50 ML IV SCH ×2 (11:35→22:01)
[2023-04-03] MEDS: EPINEPHrine HCL 250 ML IV SCH (14:30)
[2023-04-03 14:57] LABS: Cholesterol 62 mg/dL (< 200); HDL Cholesterol 13 mg/dL (40-59); LDL Cholesterol 41 mg/dL (< 100); Triglycerides 90 mg/dL (< 150)
[2023-04-03] MEDS ORDERED: BUMETANIDE 1 MG TAB PO SCH (18:00)
[2023-04-03 19:33] LABS: Base Excess -0.7 mmol/L (-2.0-2.0)
[2023-04-03] MEDS: Glucerna 1.2 Cal 1Liter BOTTLE GT SCH (20:00)
[2023-04-03 21:19] LABS: Base Excess -6.1 mmol/L (-2.0-2.0)
[2023-04-04] VITALS (113 sets, daily range): BP systolic 85–141; BP diastolic 49–85; PULSE 61–198; RESP 11–25; TEMP 97.5–98.2; O2SAT 90–100
[2023-04-04] MEDS: IPRATROPIUM BROM 0.5 MG/2.5ML INH SOL NEB SCH ×4 (00:10→18:19)
[2023-04-04] MEDS: LEVALBUTEROL HCL 1.25 MG/3 ML NEB NEB SCH ×4 (00:10→18:19)
[2023-04-04] MEDS: ACCU-CHEK COMFORT CURVE STRIP VI SCH ×4 (00:16→18:12)
[2023-04-04] MEDS: InsuLIN REG 1unit/0.01ml Soln (100units/ml) SC SCH ×4 (00:18→18:16)
[2023-04-04] MEDS: MIDAZOLAM DRIP 50 mg/50mL 50 ML IV SCH ×4 (00:20→19:38)
[2023-04-04 04:56] LABS: BUN/Creatinine Ratio 26.8 (10.0-20.0); Calcium 7.3 mg/dL (8.5-10.1); Magnesium 2.1 mg/dL (1.6-2.6); Potassium 3.5 mmol/L (3.5-5.1)
[2023-04-04] MEDS: FREE WATER GT SCH ×4 (05:59→17:48)
[2023-04-04] MEDS: fentaNYL Drip 2500mCg/250mlNS 250 ML IV SCH ×2 (06:01→18:41)
[2023-04-04] MEDS: VASOPRESSIN 20 UNITS in SODIUM CHL 0.9% 99 ML IV SCH ×2 (08:17→13:02)
[2023-04-04 08:18] LABS: Base Excess -0.6 mmol/L (-2.0-2.0)
[2023-04-04] MEDS ORDERED: ENOXAPARIN SOD 40 MG/0.4 ML SYRINGE SC SCH (10:00)
[2023-04-04 10:24] LABS: Eosinophils # (auto) 0 10 ^3/uL (0-0.8); Hemoglobin 10.3 g/dL (12.2-16.2); Lymphocytes # (auto) 0.3 10 ^3/uL (0.4-5.4); Monocytes # (auto) 0.4 10 ^3/uL (0-1.3); Red Blood Cells 3.11 10^6/uL (4.0-5.20)
[2023-04-04 10:25] LABS: Basophils # (auto) 0.2 10 ^3/uL (0-0.2); Basophils % (auto) 1.2 % (0.0-2.0); Lymphocytes % (auto) 2.2 % (10.0-50.0); Mean Corpuscular Hemoglobin 33.1 pg (28.0-32.0); Mean Corpuscular Hgb Conc. 32.2 g/dL (32.0-36.0); Mean Corpuscular Volume 102.9 fL (80.0-100.0); Monocytes % (auto) 2.8 % (0.0-12.0); Neutrophils # (auto) 12.6 10 ^3/uL (1.6-8.6); Neutrophils % (auto) 93.8 % (37.0-80.0); Nucleated Red Blood Cells % 1.2 %; Red Cell Distribution Width 17.4 % (11.8-14.3); White Blood Cell 13.5 10^3/uL (4.4-10.8)
[2023-04-04] MEDS: ENOXAPARIN SOD 80 MG/0.8ML SYRINGE SC SCH ×2 (10:25→21:51)
[2023-04-04] MEDS: LINEZOLID 600MG/300ML 300 ML IV SCH ×2 (10:25→21:46)
[2023-04-04] MEDS: PANTOPRAZOLE 40 MG/10 ML VIAL INJ IV SCH (10:25)
[2023-04-04] MEDS: HYDROCORTISONE SOD SUCC 100 MG/2ML INJ VIAL IV SCH ×2 (10:25→21:48)
[2023-04-04] MEDS: BUMETANIDE 1mg/4ml VIAL (0.25mg/ml) IV SCH ×2 (10:26→21:50)
[2023-04-04] MEDS ORDERED: POTASSIUM EFFERVESENT TAB 25 MEQ PO ONE (10:45)
[2023-04-04 10:48] LABS: Platelet Estimate Decreased
[2023-04-04] MEDS ORDERED: POTASSIUM EFFERVESENT TAB 25 MEQ PO SCH (11:00)
[2023-04-04] MEDS: CEFEPIME 2GM/50ML NS 50 ML IV SCH ×2 (14:14→23:57)
[2023-04-04] MEDS: EPINEPHrine HCL 250 ML IV SCH (14:30)
[2023-04-05] VITALS (111 sets, daily range): BP systolic 86–131; BP diastolic 48–80; PULSE 94–115; RESP 12–22; TEMP 97.5–98; O2SAT 91–100
[2023-04-05] MEDS: IPRATROPIUM BROM 0.5 MG/2.5ML INH SOL NEB SCH ×4 (00:04→18:51)
[2023-04-05] MEDS: ACCU-CHEK COMFORT CURVE STRIP VI SCH ×4 (00:04→17:56)
[2023-04-05] MEDS: LEVALBUTEROL HCL 1.25 MG/3 ML NEB NEB SCH ×4 (00:04→18:51)
[2023-04-05] MEDS: InsuLIN REG 1unit/0.01ml Soln (100units/ml) SC SCH ×4 (00:07→17:59)
[2023-04-05] MEDS: VASOPRESSIN 20 UNITS in SODIUM CHL 0.9% 99 ML IV SCH ×3 (00:09→22:23)
[2023-04-05] MEDS: MIDAZOLAM DRIP 50 mg/50mL 50 ML IV SCH ×3 (03:47→23:13)
[2023-04-05 05:57] LABS: Basophils # (auto) 0 10 ^3/uL (0-0.2); Eosinophils # (auto) 0 10 ^3/uL (0-0.8); Hemoglobin 9.3 g/dL (12.2-16.2); Lymphocytes # (auto) 0.4 10 ^3/uL (0.4-5.4); White Blood Cell 11.9 10^3/uL (4.4-10.8)
[2023-04-05 05:59] LABS: Basophils % (auto) 0.1 % (0.0-2.0); Hematocrit 27.9 % (36.0-46.0); Lymphocytes % (auto) 3.7 % (10.0-50.0); Mean Corpuscular Hemoglobin 33.8 pg (28.0-32.0); Mean Corpuscular Hgb Conc. 33.1 g/dL (32.0-36.0); Mean Corpuscular Volume 101.9 fL (80.0-100.0); Monocytes # (auto) 0.4 10 ^3/uL (0-1.3); Monocytes % (auto) 3.2 % (0.0-12.0); Nucleated Red Blood Cells % 1.7 %; Red Blood Cells 2.74 10^6/uL (4.0-5.20); Red Cell Distribution Width 17.2 % (11.8-14.3)
[2023-04-05] MEDS: FREE WATER GT SCH ×4 (06:00→18:00)
[2023-04-05 06:17] LABS: Potassium 3.9 mmol/L (3.5-5.1)
[2023-04-05 06:28] LABS: Albumin 1.8 g/dL (3.4-5.0); BUN/Creatinine Ratio 27.8 (10.0-20.0); Bilirubin, Total 2.8 mg/dL (0.2-1.0); Calcium 7.5 mg/dL (8.5-10.1); Total Protein 4.6 g/dL (6.4-8.2)
[2023-04-05] MEDS: fentaNYL Drip 2500mCg/250mlNS 250 ML IV SCH ×3 (06:33→18:09)
[2023-04-05] MEDS ORDERED: SODIUM CHLORIDE 0.9% 1,000 ML IV ONE (09:00)
[2023-04-05] MEDS: ENOXAPARIN SOD 80 MG/0.8ML SYRINGE SC SCH ×2 (09:45→21:48)
[2023-04-05] MEDS: PANTOPRAZOLE 40 MG/10 ML VIAL INJ IV SCH (09:45)
[2023-04-05] MEDS: HYDROCORTISONE SOD SUCC 100 MG/2ML INJ VIAL IV SCH ×2 (09:45→21:48)
[2023-04-05 11:07] LABS: Base Excess 0.9 mmol/L (-2.0-2.0)
[2023-04-05] MEDS: EPINEPHrine HCL 250 ML IV SCH (14:02)
[2023-04-05] MEDS ORDERED: FUROSEMIDE 20 MG/2 ML VIAL IV ONE (15:15)
[2023-04-05] MEDS: CEFEPIME 1GM/ 50ML 50 ML IV SCH ×3 (15:46→23:52)
[2023-04-05] MEDS: NOREPINEPHRINE 8 MG/250ML KIT 250 ML IV SCH (18:00)
[2023-04-06] VITALS (106 sets, daily range): BP systolic 86–141; BP diastolic 53–92; PULSE 84–124; RESP 12–21; TEMP 98–98.7; O2SAT 87–100
[2023-04-06] MEDS: ACCU-CHEK COMFORT CURVE STRIP VI SCH ×4 (00:09→17:34)
[2023-04-06] MEDS: InsuLIN REG 1unit/0.01ml Soln (100units/ml) SC SCH ×4 (00:10→18:01)
[2023-04-06] MEDS: FREE WATER GT SCH ×4 (00:11→17:34)
[2023-04-06] MEDS: IPRATROPIUM BROM 0.5 MG/2.5ML INH SOL NEB SCH ×4 (00:24→18:15)
[2023-04-06] MEDS: LEVALBUTEROL HCL 1.25 MG/3 ML NEB NEB SCH ×4 (00:24→18:15)
[2023-04-06 06:08] LABS: Potassium 3.8 mmol/L (3.5-5.1)
[2023-04-06 06:16] LABS: Albumin 1.8 g/dL (3.4-5.0); BUN/Creatinine Ratio 36.7 (10.0-20.0); Bilirubin, Total 2.3 mg/dL (0.2-1.0); Calcium 7.5 mg/dL (8.5-10.1); Total Protein 4.7 g/dL (6.4-8.2)
[2023-04-06] MEDS: fentaNYL Drip 2500mCg/250mlNS 250 ML IV SCH ×2 (06:24→19:55)
[2023-04-06 06:53] LABS: Basophils # (auto) 0 10 ^3/uL (0-0.2); Eosinophils # (auto) 0 10 ^3/uL (0-0.8); Eosinophils % (auto) 0.1 % (0.0-7.0); Hemoglobin 8.8 g/dL (12.2-16.2); Monocytes # (auto) 0.3 10 ^3/uL (0-1.3); Neutrophils # (auto) 8.4 10 ^3/uL (1.6-8.6)
[2023-04-06 06:55] LABS: Basophils % (auto) 0.1 % (0.0-2.0); Hematocrit 26.3 % (36.0-46.0); Lymphocytes # (auto) 0.3 10 ^3/uL (0.4-5.4); Lymphocytes % (auto) 3.4 % (10.0-50.0); Mean Corpuscular Hemoglobin 34.2 pg (28.0-32.0); Mean Corpuscular Hgb Conc. 33.6 g/dL (32.0-36.0); Mean Corpuscular Volume 101.9 fL (80.0-100.0); Monocytes % (auto) 3.5 % (0.0-12.0); Neutrophils % (auto) 92.9 % (37.0-80.0); Nucleated Red Blood Cells % 2.5 %; Red Blood Cells 2.58 10^6/uL (4.0-5.20); Red Cell Distribution Width 17.7 % (11.8-14.3); White Blood Cell 9.1 10^3/uL (4.4-10.8)
[2023-04-06 07:25] LABS: Base Excess 1.2 mmol/L (-2.0-2.0)
[2023-04-06] MEDS: VASOPRESSIN 20 UNITS in SODIUM CHL 0.9% 99 ML IV SCH ×2 (09:30→20:37)
[2023-04-06] MEDS: ENOXAPARIN SOD 80 MG/0.8ML SYRINGE SC SCH ×2 (10:00→21:45)
[2023-04-06] MEDS: CEFEPIME 1GM/ 50ML 50 ML IV SCH ×2 (10:11→21:55)
[2023-04-06] MEDS: PANTOPRAZOLE 40 MG/10 ML VIAL INJ IV SCH (10:11)
[2023-04-06] MEDS: MIDAZOLAM DRIP 50 mg/50mL 50 ML IV SCH (10:11)
[2023-04-06] MEDS ORDERED: POTASSIUM PHOSPHATE 22 MEQ in SODIUM CHL 0.9% 100 ML IV ONE (11:00)
[2023-04-06] MEDS: METOCLOPRAMIDE 10 mg/10ml ORAL soln GT SCH ×2 (13:56→21:55)
[2023-04-06] MEDS: EPINEPHrine HCL 250 ML IV SCH (14:30)
[2023-04-06] MEDS: DexmedeTOMIDine 200 MCG in D5W 5% 48 ML IV SCH ×2 (15:00→19:02)
[2023-04-06] MEDS: NOREPINEPHRINE 8 MG/250ML KIT 250 ML IV SCH (16:08)
[2023-04-07] VITALS (107 sets, daily range): BP systolic 66–168; BP diastolic 37–108; PULSE 86–159; RESP 12–28; TEMP 97.9–101.2; O2SAT 7–100
[2023-04-07] MEDS: LEVALBUTEROL HCL 1.25 MG/3 ML NEB NEB SCH ×4 (00:46→18:09)
[2023-04-07] MEDS: IPRATROPIUM BROM 0.5 MG/2.5ML INH SOL NEB SCH ×4 (00:46→18:09)
[2023-04-07] MEDS: ACCU-CHEK COMFORT CURVE STRIP VI SCH ×4 (02:31→17:29)
[2023-04-07] MEDS: DexmedeTOMIDine 200 MCG in D5W 5% 48 ML IV SCH ×5 (03:41→20:48)
[2023-04-07 04:51] LABS: Mean Corpuscular Hemoglobin 34.8 pg (28.0-32.0); Red Cell Distribution Width 17.4 % (11.8-14.3); White Blood Cell 7.1 10^3/uL (4.4-10.8)
[2023-04-07 04:53] LABS: Hematocrit 24.6 % (36.0-46.0); Hemoglobin 8.4 g/dL (12.2-16.2); Mean Corpuscular Hgb Conc. 34.1 g/dL (32.0-36.0); Mean Corpuscular Volume 101.9 fL (80.0-100.0); Red Blood Cells 2.42 10^6/uL (4.0-5.20)
[2023-04-07 05:02] LABS: Albumin 1.8 g/dL (3.4-5.0); Calcium 7.6 mg/dL (8.5-10.1); Potassium 3.6 mmol/L (3.5-5.1)
[2023-04-07 05:06] LABS: BUN/Creatinine Ratio 41.5 (10.0-20.0); Bilirubin, Total 2.5 mg/dL (0.2-1.0); Total Protein 4.7 g/dL (6.4-8.2)
[2023-04-07 05:09] LABS: Basophils % (manual) 0 (0.0-2.0); Blast Cells 0; Metamyelocytes % 0; Promyelocytes % 0; Reactive Lymphocytes 0
[2023-04-07] MEDS: InsuLIN REG 1unit/0.01ml Soln (100units/ml) SC SCH ×4 (06:00→17:29)
[2023-04-07] MEDS: FREE WATER GT SCH ×4 (06:10→18:18)
[2023-04-07] MEDS: METOCLOPRAMIDE 10 mg/10ml ORAL soln GT SCH ×3 (06:11→22:13)
[2023-04-07 07:12] LABS: Base Excess 3.8 mmol/L (-2.0-2.0)
[2023-04-07] MEDS ORDERED: FUROSEMIDE 40 MG/4 ML VIAL IV ONE (08:45)
[2023-04-07 09:04] LABS: Band Neutrophils % (manual) 6; Eosinophils % (manual) 1 (0-7); Lymphocytes % (manual) 7 (10.0-50.0); Macrocytosis Slight; Monocytes % (manual) 4 (0-12); Myelocytes % 1; Platelet Estimate Decreased
[2023-04-07] MEDS: LACTULOSE 20Gm/30ML SOLN PO SCH ×2 (10:15→22:11)
[2023-04-07] MEDS: ENOXAPARIN SOD 30 MG/0.3 ML SYRINGE SC SCH ×2 (10:15→22:12)
[2023-04-07] MEDS: PANTOPRAZOLE 40 MG/10 ML VIAL INJ IV SCH (10:16)
[2023-04-07] MEDS: CEFEPIME 1GM/ 50ML 50 ML IV SCH ×2 (10:16→22:11)
[2023-04-07] MEDS ORDERED: METOPROLOL TARTRATE 1MG/1ML-5ML VIAL IV ONE ×2 (11:45→15:30)
[2023-04-07] MEDS: fentaNYL Drip 2500mCg/250mlNS 250 ML IV SCH (12:05)
[2023-04-07] MEDS: POTASSIUM CHL 20MEQ/100ML 100 ML IV SCH ×2 (14:47→16:23)
[2023-04-07] MEDS: NOREPINEPHRINE 8 MG/250ML KIT 250 ML IV SCH (15:30)
[2023-04-07] MEDS: ACETAMINOPHEN 325 MG TAB PO PRN ×2 (16:33→22:11)
[2023-04-07] MEDS: METOPROLOL TARTRATE 25 MG TAB PO SCH (22:12)
[2023-04-08] VITALS (66 sets, daily range): BP systolic 92–171; BP diastolic 50–105; PULSE 90–129; RESP 11–31; TEMP 98.8–99.8; O2SAT 87–100
[2023-04-08] MEDS: FREE WATER GT SCH ×4 (00:01→17:20)
[2023-04-08] MEDS: ACCU-CHEK COMFORT CURVE STRIP VI SCH ×4 (00:01→17:22)
[2023-04-08] MEDS: LEVALBUTEROL HCL 1.25 MG/3 ML NEB NEB SCH ×4 (00:22→18:07)
[2023-04-08] MEDS: IPRATROPIUM BROM 0.5 MG/2.5ML INH SOL NEB SCH ×4 (00:22→18:07)
[2023-04-08] MEDS: DexmedeTOMIDine 200 MCG in D5W 5% 48 ML IV SCH ×2 (01:39→06:18)
[2023-04-08 04:24] LABS: Basophils # (auto) 0 10 ^3/uL (0-0.2); Eosinophils # (auto) 0 10 ^3/uL (0-0.8); Hemoglobin 7.2 g/dL (12.2-16.2); Lymphocytes # (auto) 0.4 10 ^3/uL (0.4-5.4); Mean Corpuscular Volume 102.6 fL (80.0-100.0)
[2023-04-08 04:26] LABS: Potassium 3.5 mmol/L (3.5-5.1)
[2023-04-08 04:27] LABS: Basophils % (auto) 0.1 % (0.0-2.0); Eosinophils % (auto) 0.6 % (0.0-7.0); Hematocrit 21.5 % (36.0-46.0); Lymphocytes % (auto) 7.9 % (10.0-50.0); Mean Corpuscular Hemoglobin 34.4 pg (28.0-32.0); Mean Corpuscular Hgb Conc. 33.6 g/dL (32.0-36.0); Monocytes # (auto) 0.3 10 ^3/uL (0-1.3); Monocytes % (auto) 4.8 % (0.0-12.0); Neutrophils # (auto) 4.5 10 ^3/uL (1.6-8.6); Neutrophils % (auto) 86.6 % (37.0-80.0); Nucleated Red Blood Cells % 0.6 %; Red Blood Cells 2.09 10^6/uL (4.0-5.20); Red Cell Distribution Width 17.3 % (11.8-14.3); White Blood Cell 5.2 10^3/uL (4.4-10.8)
[2023-04-08 04:33] LABS: Albumin 1.6 g/dL (3.4-5.0); BUN/Creatinine Ratio 36.6 (10.0-20.0); Calcium 7.4 mg/dL (8.5-10.1)
[2023-04-08 04:36] LABS: Bilirubin, Total 1.9 mg/dL (0.2-1.0); Total Protein 4.5 g/dL (6.4-8.2)
[2023-04-08] MEDS: InsuLIN REG 1unit/0.01ml Soln (100units/ml) SC SCH ×4 (06:00→17:22)
[2023-04-08] MEDS: METOCLOPRAMIDE 10 mg/10ml ORAL soln GT SCH ×3 (06:18→22:00)
[2023-04-08 07:22] LABS: Base Excess 1.9 mmol/L (-2.0-2.0)
[2023-04-08] MEDS: METOPROLOL TARTRATE 25 MG TAB PO SCH ×2 (09:20→22:31)
[2023-04-08] MEDS: PANTOPRAZOLE 40 MG/10 ML VIAL INJ IV SCH (09:20)
[2023-04-08] MEDS: ENOXAPARIN SOD 30 MG/0.3 ML SYRINGE SC SCH ×2 (09:21→22:32)
[2023-04-08] MEDS: CEFEPIME 1GM/ 50ML 50 ML IV SCH ×2 (09:21→22:32)
[2023-04-08] MEDS: LACTULOSE 20Gm/30ML SOLN PO SCH ×2 (09:21→22:00)
[2023-04-08] MEDS ORDERED: POTASSIUM CHL 20MEQ/100ML 100 ML IV ONE (09:30)
[2023-04-08] MEDS: FUROSEMIDE 20 MG/2 ML VIAL IV SCH (12:37)
[2023-04-08] MEDS: NOREPINEPHRINE 8 MG/250ML KIT 250 ML IV SCH (15:30)
[2023-04-09] VITALS (43 sets, daily range): BP systolic 123–156; BP diastolic 76–98; PULSE 105–123; RESP 17–30; TEMP 97.8–100; O2SAT 94–100
[2023-04-09] MEDS: LEVALBUTEROL HCL 1.25 MG/3 ML NEB NEB SCH ×4 (00:18→18:17)
[2023-04-09] MEDS: IPRATROPIUM BROM 0.5 MG/2.5ML INH SOL NEB SCH ×4 (00:18→18:17)
[2023-04-09] MEDS: FREE WATER GT SCH ×4 (00:23→17:44)
[2023-04-09] MEDS: ACCU-CHEK COMFORT CURVE STRIP VI SCH ×4 (00:23→17:48)
[2023-04-09 04:34] LABS: Hemoglobin 7.3 g/dL (12.2-16.2)
[2023-04-09 04:36] LABS: Hematocrit 21.9 % (36.0-46.0); Mean Corpuscular Hemoglobin 34.2 pg (28.0-32.0); Mean Corpuscular Hgb Conc. 33.3 g/dL (32.0-36.0); Mean Corpuscular Volume 102.8 fL (80.0-100.0); Red Blood Cells 2.13 10^6/uL (4.0-5.20); Red Cell Distribution Width 17.8 % (11.8-14.3); White Blood Cell 7.3 10^3/uL (4.4-10.8)
[2023-04-09] MEDS: ACETAMINOPHEN 325 MG TAB PO PRN ×2 (04:39→08:51)
[2023-04-09 04:40] LABS: Potassium 3.1 mmol/L (3.5-5.1)
[2023-04-09 04:42] LABS: BUN/Creatinine Ratio 32.8 (10.0-20.0); Calcium 7.7 mg/dL (8.5-10.1)
[2023-04-09 05:30] LABS: Band Neutrophils % (manual) 0; Basophils % (manual) 0 (0.0-2.0); Blast Cells 0; Eosinophils % (manual) 0 (0-7); Metamyelocytes % 0; Myelocytes % 0; Promyelocytes % 0; Reactive Lymphocytes 0
[2023-04-09] MEDS: InsuLIN REG 1unit/0.01ml Soln (100units/ml) SC SCH ×4 (06:00→17:48)
[2023-04-09] MEDS: METOCLOPRAMIDE 10 mg/10ml ORAL soln GT SCH ×3 (06:00→22:00)
[2023-04-09 07:29] LABS: Lymphocytes % (manual) 8 (10.0-50.0); Monocytes % (manual) 3 (0-12)
[2023-04-09 07:30] LABS: Anisocytosis Moderate; Hypochromia Moderate; Large Platelets FEW; Toxic Granulation Slight
[2023-04-09 07:35] LABS: Platelet Estimate Adequate
[2023-04-09 07:43] LABS: Base Excess -0.4 mmol/L (-2.0-2.0)
[2023-04-09] MEDS: fentaNYL Drip 2500mCg/250mlNS 250 ML IV SCH (09:00)
[2023-04-09] MEDS: CEFEPIME 1GM/ 50ML 50 ML IV SCH ×2 (09:08→22:37)
[2023-04-09] MEDS: PANTOPRAZOLE 40 MG/10 ML VIAL INJ IV SCH (09:08)
[2023-04-09] MEDS: LACTULOSE 20Gm/30ML SOLN PO SCH ×2 (09:09→22:00)
[2023-04-09] MEDS: POTASSIUM CHL 20MEQ/100ML 100 ML IV SCH ×3 (09:09→13:33)
[2023-04-09] MEDS: ENOXAPARIN SOD 30 MG/0.3 ML SYRINGE SC SCH ×2 (09:09→22:37)
[2023-04-09] MEDS: METOPROLOL TARTRATE 25 MG TAB PO SCH ×2 (09:10→22:37)
[2023-04-09] MEDS: FUROSEMIDE 20 MG/2 ML VIAL IV SCH (12:15)
[2023-04-09] MEDS: DexmedeTOMIDine 200 MCG in D5W 5% 48 ML IV SCH (14:30)
[2023-04-09 14:39] LABS: Base Excess 0.2 mmol/L (-2.0-2.0)
[2023-04-09] MEDS ORDERED: FUROSEMIDE 20 MG/2 ML VIAL IV ONE (15:15)
[2023-04-09] MEDS: NOREPINEPHRINE 8 MG/250ML KIT 250 ML IV SCH (15:30)
[2023-04-10] VITALS (37 sets, daily range): BP systolic 96–147; BP diastolic 65–90; PULSE 98–124; RESP 16–35; TEMP 97.5–99.3; O2SAT 84–100
[2023-04-10] MEDS: FREE WATER GT SCH
[2023-04-10] MEDS: LEVALBUTEROL HCL 1.25 MG/3 ML NEB NEB SCH ×4 (00:03→18:39)
[2023-04-10] MEDS: IPRATROPIUM BROM 0.5 MG/2.5ML INH SOL NEB SCH ×4 (00:03→18:39)
[2023-04-10] MEDS: DexmedeTOMIDine 200 MCG in D5W 5% 48 ML IV SCH (02:25)
[2023-04-10 03:55] LABS: Hemoglobin 7.3 g/dL (12.2-16.2); White Blood Cell 6.5 10^3/uL (4.4-10.8)
[2023-04-10 03:57] LABS: Hematocrit 21.4 % (36.0-46.0); Mean Corpuscular Hemoglobin 34.9 pg (28.0-32.0); Mean Corpuscular Volume 102.6 fL (80.0-100.0); Red Blood Cells 2.08 10^6/uL (4.0-5.20); Red Cell Distribution Width 17.8 % (11.8-14.3)
[2023-04-10 04:07] LABS: Calcium 7.5 mg/dL (8.5-10.1); Potassium 3.3 mmol/L (3.5-5.1)
[2023-04-10 04:09] LABS: BUN/Creatinine Ratio 24.6 (10.0-20.0); Magnesium 1.5 mg/dL (1.6-2.6)
[2023-04-10 04:53] LABS: Basophils % (manual) 0 (0.0-2.0); Blast Cells 0; Eosinophils % (manual) 0 (0-7); Myelocytes % 0; Promyelocytes % 0; Reactive Lymphocytes 0
[2023-04-10] MEDS: ACCU-CHEK COMFORT CURVE STRIP VI SCH ×4 (06:00→17:52)
[2023-04-10] MEDS: InsuLIN REG 1unit/0.01ml Soln (100units/ml) SC SCH ×4 (06:00→17:59)
[2023-04-10 06:16] LABS: Anisocytosis Moderate; Band Neutrophils % (manual) 4; Lymphocytes % (manual) 2 (10.0-50.0); Macrocytosis Moderate; Metamyelocytes % 1; Monocytes % (manual) 3 (0-12); Ovalocytes FEW; Platelet Estimate Markedly Decreased
[2023-04-10 06:17] LABS: Polychromasia Slight; Tear Drop Cells FEW
[2023-04-10] MEDS: FUROSEMIDE 20 MG/2 ML VIAL IV SCH ×2 (07:36→09:56)
[2023-04-10] MEDS: MAGNESIUM SULFATE 1GM/100ML 100 ML IV SCH ×2 (08:08→09:57)
[2023-04-10] MEDS: POTASSIUM CHL 20MEQ/100ML 100 ML IV SCH ×2 (08:09→10:30)
[2023-04-10 09:00] LABS: Base Excess 2.1 mmol/L (-2.0-2.0)
[2023-04-10] MEDS: fentaNYL Drip 2500mCg/250mlNS 250 ML IV SCH (09:00)
[2023-04-10] MEDS: CEFEPIME 1GM/ 50ML 50 ML IV SCH ×2 (09:56→22:35)
[2023-04-10] MEDS: PANTOPRAZOLE 40 MG/10 ML VIAL INJ IV SCH (09:56)
[2023-04-10] MEDS: LACTULOSE 20Gm/30ML SOLN PO SCH ×2 (09:56→22:00)
[2023-04-10] MEDS: METOPROLOL TARTRATE 50 MG TAB PO SCH ×2 (10:00→22:36)
[2023-04-10] MEDS ORDERED: ACETAMINOPHEN 500 MG TAB PO PRN (13:15)
[2023-04-10] MEDS ORDERED: MORPHINE SULFATE INJ 2 MG/ml SYRG IV PRN (13:15)
[2023-04-10] MEDS ORDERED: HYDROcodone-ACET 5/325MG TAB PO PRN (13:15)
[2023-04-10] MEDS ORDERED: ONDANSETRON HCL 4 MG/2 ML VIAL IV PRN (13:15)
[2023-04-10] MEDS: NOREPINEPHRINE 8 MG/250ML KIT 250 ML IV SCH (15:30)
[2023-04-10] MEDS: METOPROLOL TARTRATE 1MG/1ML-5ML VIAL IV SCH (17:53)
[2023-04-11] VITALS (40 sets, daily range): BP systolic 99–150; BP diastolic 51–89; PULSE 85–114; RESP 14–41; TEMP 98–98.4; O2SAT 93–100
[2023-04-11] MEDS: IPRATROPIUM BROM 0.5 MG/2.5ML INH SOL NEB SCH ×4 (00:17→18:04)
[2023-04-11] MEDS: LEVALBUTEROL HCL 1.25 MG/3 ML NEB NEB SCH ×4 (00:17→18:04)
[2023-04-11] MEDS: METOPROLOL TARTRATE 1MG/1ML-5ML VIAL IV SCH ×2 (01:04→06:00)
[2023-04-11 04:08] LABS: Basophils # (auto) 0 10 ^3/uL (0-0.2); Basophils % (auto) 0.3 % (0.0-2.0); Eosinophils # (auto) 0 10 ^3/uL (0-0.8); Eosinophils % (auto) 0.4 % (0.0-7.0); Monocytes # (auto) 0.6 10 ^3/uL (0-1.3)
[2023-04-11 04:11] LABS: Hematocrit 19.8 % (36.0-46.0); Lymphocytes # (auto) 0.4 10 ^3/uL (0.4-5.4); Lymphocytes % (auto) 4.7 % (10.0-50.0); Mean Corpuscular Hgb Conc. 34.3 g/dL (32.0-36.0); Mean Corpuscular Volume 102.1 fL (80.0-100.0); Monocytes % (auto) 6.9 % (0.0-12.0); Neutrophils # (auto) 7.9 10 ^3/uL (1.6-8.6); Neutrophils % (auto) 87.7 % (37.0-80.0); Nucleated Red Blood Cells % 0.2 %; Red Blood Cells 1.94 10^6/uL (4.0-5.20); Red Cell Distribution Width 17.2 % (11.8-14.3)
[2023-04-11 04:24] LABS: Hemoglobin 6.8 g/dL (12.2-16.2)
[2023-04-11 04:28] LABS: Potassium 3.2 mmol/L (3.5-5.1)
[2023-04-11 04:35] LABS: Albumin 1.6 g/dL (3.4-5.0); BUN/Creatinine Ratio 22.8 (10.0-20.0); Bilirubin, Total 1.4 mg/dL (0.2-1.0); Calcium 7.1 mg/dL (8.5-10.1); Total Protein 4.4 g/dL (6.4-8.2)
[2023-04-11] MEDS: ACCU-CHEK COMFORT CURVE STRIP VI SCH ×4 (06:04→17:54)
[2023-04-11] MEDS: InsuLIN REG 1unit/0.01ml Soln (100units/ml) SC SCH ×4 (06:07→17:54)
[2023-04-11] MEDS: FUROSEMIDE 20 MG/2 ML VIAL IV SCH (07:50)
[2023-04-11 09:02] LABS: Base Excess 8.1 mmol/L (-2.0-2.0)
[2023-04-11] MEDS: POTASSIUM CHL 20MEQ/100ML 100 ML IV SCH ×2 (09:55→12:09)
[2023-04-11] MEDS: LACTULOSE 20Gm/30ML SOLN PO SCH ×2 (10:00→22:00)
[2023-04-11] MEDS: CEFEPIME 1GM/ 50ML 50 ML IV SCH ×2 (10:09→22:15)
[2023-04-11] MEDS: METOPROLOL TARTRATE 50 MG TAB PO SCH ×2 (10:09→22:16)
[2023-04-11] MEDS: PANTOPRAZOLE 40 MG/10 ML VIAL INJ IV SCH (10:12)
[2023-04-11] MEDS: NOREPINEPHRINE 8 MG/250ML KIT 250 ML IV SCH (15:30)
[2023-04-12] VITALS (42 sets, daily range): BP systolic 103–141; BP diastolic 58–88; PULSE 64–115; RESP 22–51; TEMP 97.8–99.6; O2SAT 88–100
[2023-04-12] MEDS: ACCU-CHEK COMFORT CURVE STRIP VI SCH ×4 (00:04→18:18)
[2023-04-12] MEDS: IPRATROPIUM BROM 0.5 MG/2.5ML INH SOL NEB SCH ×4 (00:21→17:44)
[2023-04-12] MEDS: LEVALBUTEROL HCL 1.25 MG/3 ML NEB NEB SCH ×4 (00:22→17:45)
[2023-04-12 05:06] LABS: Hemoglobin 8.9 g/dL (12.2-16.2)
[2023-04-12 05:08] LABS: Hematocrit 26.1 % (36.0-46.0); Mean Corpuscular Hemoglobin 33.1 pg (28.0-32.0); Mean Corpuscular Hgb Conc. 34.3 g/dL (32.0-36.0); Mean Corpuscular Volume 96.6 fL (80.0-100.0); Red Cell Distribution Width 18.9 % (11.8-14.3); White Blood Cell 11.5 10^3/uL (4.4-10.8)
[2023-04-12 05:15] LABS: Basophils % (manual) 0 (0.0-2.0); Blast Cells 0; Metamyelocytes % 0; Myelocytes % 0; Promyelocytes % 0; Reactive Lymphocytes 0
[2023-04-12 05:19] LABS: Calcium 7.5 mg/dL (8.5-10.1); Potassium 3.3 mmol/L (3.5-5.1)
[2023-04-12 05:21] LABS: BUN/Creatinine Ratio 28.3 (10.0-20.0)
[2023-04-12] MEDS: InsuLIN REG 1unit/0.01ml Soln (100units/ml) SC SCH ×4 (06:00→18:00)
[2023-04-12] MEDS: PANTOPRAZOLE 40 MG/10 ML VIAL INJ IV SCH (09:25)
[2023-04-12] MEDS: LACTULOSE 20Gm/30ML SOLN PO SCH (09:26)
[2023-04-12] MEDS: FUROSEMIDE 20 MG/2 ML VIAL IV SCH (09:26)
[2023-04-12] MEDS: CEFEPIME 1GM/ 50ML 50 ML IV SCH ×2 (09:26→21:33)
[2023-04-12] MEDS ORDERED: POTASSIUM CHLORIDE 40 MEQ, LIDOCAINE 1% (LOCAL ANESTH.) 4 ML in SODIUM CHL 0.9% 250 ML IV ONE (10:00)
[2023-04-12] MEDS: METOPROLOL TARTRATE 50 MG TAB PO SCH ×2 (12:39→21:34)
[2023-04-12 12:44] LABS: Band Neutrophils % (manual) 1; Eosinophils % (manual) 3 (0-7); Lymphocytes % (manual) 6 (10.0-50.0); Monocytes % (manual) 3 (0-12)
[2023-04-12 12:48] LABS: Anisocytosis Slight
[2023-04-12 12:49] LABS: Platelet Estimate Decreased
[2023-04-12] MEDS: APIXABAN 5 MG TAB PO SCH ×2 (12:50→21:33)
[2023-04-12] MEDS: Ensure HIGH Protein Chocolate 8oz Bottle PO SCH (13:00)
[2023-04-12] MEDS: BUDESONIDE (INHALATION) 0.5 MG/2 ML NEB NEB SCH ×2 (13:01→17:44)
[2023-04-12] MEDS: NOREPINEPHRINE 8 MG/250ML KIT 250 ML IV SCH (15:30)
[2023-04-13] VITALS (61 sets, daily range): BP systolic 73–139; BP diastolic 44–83; PULSE 87–114; RESP 11–46; TEMP 98.4–99.5; O2SAT 90–100
[2023-04-13] MEDS: ACCU-CHEK COMFORT CURVE STRIP VI SCH ×4 (00:15→18:14)
[2023-04-13] MEDS: InsuLIN REG 1unit/0.01ml Soln (100units/ml) SC SCH ×4 (00:15→18:00)
[2023-04-13 03:46] LABS: Mean Corpuscular Volume 97.1 fL (80.0-100.0)
[2023-04-13 03:48] LABS: Hematocrit 24.4 % (36.0-46.0); Hemoglobin 8.2 g/dL (12.2-16.2); Mean Corpuscular Hemoglobin 32.6 pg (28.0-32.0); Mean Corpuscular Hgb Conc. 33.5 g/dL (32.0-36.0); Red Blood Cells 2.51 10^6/uL (4.0-5.20); Red Cell Distribution Width 19.1 % (11.8-14.3); White Blood Cell 11.5 10^3/uL (4.4-10.8)
[2023-04-13 04:02] LABS: Basophils % (manual) 0 (0.0-2.0); Blast Cells 0; Calcium 7.7 mg/dL (8.5-10.1); Eosinophils % (manual) 0 (0-7); Promyelocytes % 0; Reactive Lymphocytes 0
[2023-04-13 04:04] LABS: BUN/Creatinine Ratio 19.5 (10.0-20.0)
[2023-04-13 04:15] LABS: Potassium 2.9 mmol/L (3.5-5.1)
[2023-04-13] MEDS ORDERED: POTASSIUM CHL 20MEQ/100ML 100 ML IV ONE (05:15)
[2023-04-13] MEDS: BUDESONIDE (INHALATION) 0.5 MG/2 ML NEB NEB SCH ×2 (06:25→18:10)
[2023-04-13] MEDS: LEVALBUTEROL HCL 1.25 MG/3 ML NEB NEB SCH ×4 (06:25→18:10)
[2023-04-13] MEDS: IPRATROPIUM BROM 0.5 MG/2.5ML INH SOL NEB SCH ×4 (06:25→18:10)
[2023-04-13] MEDS ORDERED: POTASSIUM CHLORIDE 60 MEQ, LIDOCAINE 1% (LOCAL ANESTH.) 6 ML in SODIUM CHL 0.9% 500 ML IV ONE (07:00)
[2023-04-13 07:04] LABS: Band Neutrophils % (manual) 6; Lymphocytes % (manual) 6 (10.0-50.0); Metamyelocytes % 2; Monocytes % (manual) 3 (0-12); Myelocytes % 1; Platelet Estimate Decreased
[2023-04-13 07:05] LABS: Anisocytosis Slight; Large Platelets FEW; Target Cell FEW
[2023-04-13] MEDS: Ensure HIGH Protein Chocolate 8oz Bottle PO SCH ×4 (08:00→18:00)
[2023-04-13] MEDS ORDERED: MAGNESIUM SULFATE 1GM/100ML 100 ML IV ONE (09:00)
[2023-04-13 09:25] LABS: Base Excess 8.2 mmol/L (-2.0-2.0)
[2023-04-13] MEDS: METOPROLOL TARTRATE 50 MG TAB PO SCH ×2 (10:00→22:00)
[2023-04-13] MEDS: FUROSEMIDE 20 MG/2 ML VIAL IV SCH (10:00)
[2023-04-13] MEDS: PANTOPRAZOLE 40 MG/10 ML VIAL INJ IV SCH (10:21)
[2023-04-13] MEDS ORDERED: SODIUM CHLORIDE 0.9% 500 ML IV ONE (11:00)
[2023-04-13] MEDS: SOD CHL 0.45% 1,000 ML IV SCH (11:33)
[2023-04-13] MEDS: CEFEPIME 1GM/ 50ML 50 ML IV SCH ×2 (12:53→22:18)
[2023-04-13] MEDS ORDERED: ROCURONIUM 10MG/ML 10ML VIAL IV ONE ×2 (14:14→14:15)
[2023-04-13] MEDS ORDERED: ETOMIDATE (2MG/ML) 20ML VIAL IV ONE ×2 (14:14→14:15)
[2023-04-13] MEDS ORDERED: PROPOFOL 100 ML IV ONE (14:15)
[2023-04-13] MEDS ORDERED: fentaNYL Drip 2500mCg/250mlNS 250 ML IV ONE (14:16)
[2023-04-13] MEDS ORDERED: Jevity 1.2 Cal/Fiber 1 Liter GT SCH (15:00)
[2023-04-13] MEDS: PROPOFOL 100 ML IV SCH ×2 (15:17→22:24)
[2023-04-13] MEDS: fentaNYL Drip 2500mCg/250mlNS 250 ML IV SCH (15:20)
[2023-04-13] MEDS: NOREPINEPHRINE 8 MG/250ML KIT 250 ML IV SCH (15:42)
[2023-04-13] MEDS: APIXABAN 5 MG TAB PO SCH ×2 (15:46→22:22)
[2023-04-13 16:04] LABS: Base Excess 3.2 mmol/L (-2.0-2.0)
[2023-04-13] MEDS: FREE WATER GT SCH (18:23)
[2023-04-14] VITALS (103 sets, daily range): BP systolic 57–147; BP diastolic 36–85; PULSE 82–128; RESP 13–45; TEMP 98.2–100.8; O2SAT 79–100
[2023-04-14] MEDS: IPRATROPIUM BROM 0.5 MG/2.5ML INH SOL NEB SCH ×4 (00:08→18:19)
[2023-04-14] MEDS: LEVALBUTEROL HCL 1.25 MG/3 ML NEB NEB SCH ×4 (00:08→18:19)
[2023-04-14] MEDS: ACCU-CHEK COMFORT CURVE STRIP VI SCH ×4 (00:13→18:04)
[2023-04-14] MEDS: FREE WATER GT SCH ×4 (00:14→18:05)
[2023-04-14] MEDS: SOD CHL 0.45% 1,000 ML IV SCH ×2 (02:36→15:51)
[2023-04-14] MEDS: PROPOFOL 100 ML IV SCH ×4 (02:43→22:56)
[2023-04-14 04:03] LABS: Red Blood Cells 2.46 10^6/uL (4.0-5.20)
[2023-04-14 04:05] LABS: Hematocrit 24.4 % (36.0-46.0); Mean Corpuscular Hemoglobin 32.6 pg (28.0-32.0); Mean Corpuscular Hgb Conc. 32.8 g/dL (32.0-36.0); Mean Corpuscular Volume 99.3 fL (80.0-100.0); Potassium 3.6 mmol/L (3.5-5.1); Red Cell Distribution Width 18.5 % (11.8-14.3); White Blood Cell 21.2 10^3/uL (4.4-10.8)
[2023-04-14 04:08] LABS: Basophils % (manual) 0 (0.0-2.0); Blast Cells 0; Myelocytes % 0; Promyelocytes % 0; Reactive Lymphocytes 0
[2023-04-14 04:10] LABS: BUN/Creatinine Ratio 25.4 (10.0-20.0)
[2023-04-14] MEDS: InsuLIN REG 1unit/0.01ml Soln (100units/ml) SC SCH ×4 (05:47→18:00)
[2023-04-14] MEDS: fentaNYL Drip 2500mCg/250mlNS 250 ML IV SCH ×2 (05:49→18:53)
[2023-04-14] MEDS: VASOPRESSIN 20 UNITS in SODIUM CHL 0.9% 99 ML IV SCH ×2 (06:50→14:46)
[2023-04-14] MEDS: BUDESONIDE (INHALATION) 0.5 MG/2 ML NEB NEB SCH ×2 (07:04→18:19)
[2023-04-14 07:30] LABS: Base Excess -0.1 mmol/L (-2.0-2.0)
[2023-04-14] MEDS: Ensure HIGH Protein Chocolate 8oz Bottle PO SCH (07:40)
[2023-04-14] MEDS ORDERED: Jevity 1.2 Cal/Fiber 1 Liter GT SCH (08:00)
[2023-04-14] MEDS ORDERED: VANCOMYCIN PER PHARMACY 0 MG IV SCH (08:00)
[2023-04-14] MEDS: NOREPINEPHRINE 8 MG/250ML KIT 250 ML IV SCH ×2 (08:46→13:05)
[2023-04-14 08:54] LABS: Eosinophils % (manual) 1 (0-7); Lymphocytes % (manual) 5 (10.0-50.0); Monocytes % (manual) 5 (0-12)
[2023-04-14 08:56] LABS: Anisocytosis Slight; Band Neutrophils % (manual) 5; Macrocytosis Slight; Metamyelocytes % 1
[2023-04-14 08:57] LABS: Platelet Estimate Decreased; Polychromasia Slight; Tear Drop Cells FEW
[2023-04-14] MEDS ORDERED: VANCOMYCIN 1GM/250ML 250 ML IV ONE (09:30)
[2023-04-14] MEDS: PANTOPRAZOLE 40 MG/10 ML VIAL INJ IV SCH (10:13)
[2023-04-14] MEDS: APIXABAN 5 MG TAB PO SCH ×2 (10:14→21:54)
[2023-04-14] MEDS: FUROSEMIDE 20 MG/2 ML VIAL IV SCH (10:14)
[2023-04-14] MEDS: MEROPENEM 1GM IVPB 100 ML IV SCH ×2 (10:14→19:02)
[2023-04-14] MEDS: MIDAZOLAM DRIP 50 mg/50mL 50 ML IV SCH (16:34)
[2023-04-14] MEDS ORDERED: MAGNESIUM SULFATE 1GM/100ML 100 ML IV ONE (17:00)
[2023-04-14] MEDS: NOREPINEPHRINE BITARTRATE 32 MG in SODIUM CHL 0.9% 218 ML IV SCH (17:14)
[2023-04-14] MEDS: PHENYLEPHRINE IV 250 ML IV SCH (22:55)
[2023-04-15] VITALS (106 sets, daily range): BP systolic 84–182; BP diastolic 43–117; PULSE 109–137; RESP 9–53; TEMP 96.3–99.5; O2SAT 75–100
[2023-04-15] MEDS: LEVALBUTEROL HCL 1.25 MG/3 ML NEB NEB SCH ×4 (00:08→18:05)
[2023-04-15] MEDS: IPRATROPIUM BROM 0.5 MG/2.5ML INH SOL NEB SCH ×4 (00:09→18:05)
[2023-04-15] MEDS: ACCU-CHEK COMFORT CURVE STRIP VI SCH ×4 (00:10→17:36)
[2023-04-15] MEDS: FREE WATER GT SCH ×4 (00:11→17:39)
[2023-04-15] MEDS: MEROPENEM 1GM IVPB 100 ML IV SCH ×3 (02:09→17:36)
[2023-04-15] MEDS: VASOPRESSIN 20 UNITS in SODIUM CHL 0.9% 99 ML IV SCH ×2 (02:09→13:24)
[2023-04-15] MEDS: SOD CHL 0.45% 1,000 ML IV SCH ×2 (03:33→16:49)
[2023-04-15] MEDS: MIDAZOLAM DRIP 50 mg/50mL 50 ML IV SCH ×3 (04:07→21:18)
[2023-04-15 04:16] LABS: Hematocrit 24.4 % (36.0-46.0); Monocytes # (auto) 0.7 10 ^3/uL (0-1.3)
[2023-04-15 04:19] LABS: Basophils # (auto) 0 10 ^3/uL (0-0.2); Basophils % (auto) 0.2 % (0.0-2.0); Eosinophils # (auto) 0.3 10 ^3/uL (0-0.8); Eosinophils % (auto) 1.6 % (0.0-7.0); Hemoglobin 7.9 g/dL (12.2-16.2); Lymphocytes # (auto) 0.7 10 ^3/uL (0.4-5.4); Lymphocytes % (auto) 3.7 % (10.0-50.0); Mean Corpuscular Hemoglobin 32.5 pg (28.0-32.0); Mean Corpuscular Hgb Conc. 32.4 g/dL (32.0-36.0); Mean Corpuscular Volume 100.3 fL (80.0-100.0); Monocytes % (auto) 3.9 % (0.0-12.0); Neutrophils # (auto) 16.4 10 ^3/uL (1.6-8.6); Neutrophils % (auto) 90.6 % (37.0-80.0); Red Blood Cells 2.43 10^6/uL (4.0-5.20); Red Cell Distribution Width 19.6 % (11.8-14.3); White Blood Cell 18.1 10^3/uL (4.4-10.8)
[2023-04-15 04:30] LABS: Nucleated Red Blood Cells % 3.6 %
[2023-04-15 04:35] LABS: Potassium 3.6 mmol/L (3.5-5.1)
[2023-04-15 04:41] LABS: Albumin 1.4 g/dL (3.4-5.0); BUN/Creatinine Ratio 22.9 (10.0-20.0); Bilirubin, Total 1.2 mg/dL (0.2-1.0); Calcium 6.6 mg/dL (8.5-10.1); Magnesium 1.9 mg/dL (1.6-2.6); Total Protein 4.5 g/dL (6.4-8.2)
[2023-04-15] MEDS: PHENYLEPHRINE IV 250 ML IV SCH ×2 (05:22→08:39)
[2023-04-15] MEDS: BUDESONIDE (INHALATION) 0.5 MG/2 ML NEB NEB SCH ×2 (05:56→18:05)
[2023-04-15] MEDS: InsuLIN REG 1unit/0.01ml Soln (100units/ml) SC SCH ×4 (06:00→17:43)
[2023-04-15] MEDS: VANCOMYCIN 1GM/250ML 250 ML IV SCH (06:08)
[2023-04-15] MEDS: PROPOFOL 100 ML IV SCH ×3 (06:14→21:18)
[2023-04-15] MEDS: fentaNYL Drip 2500mCg/250mlNS 250 ML IV SCH ×2 (07:17→16:59)
[2023-04-15 07:56] LABS: Base Excess -5.5 mmol/L (-2.0-2.0)
[2023-04-15] MEDS ORDERED: ROCURONIUM 10MG/ML 10ML VIAL IV ONE (08:30)
[2023-04-15] MEDS: NOREPINEPHRINE BITARTRATE 32 MG in SODIUM CHL 0.9% 218 ML IV SCH (08:41)
[2023-04-15] MEDS: PANTOPRAZOLE 40 MG/10 ML VIAL INJ IV SCH (09:54)
[2023-04-15 09:55] LABS: Base Excess -7.5 mmol/L (-2.0-2.0)
[2023-04-15] MEDS: FUROSEMIDE 20 MG/2 ML VIAL IV SCH (09:55)
[2023-04-15] MEDS: APIXABAN 5 MG TAB PO SCH ×2 (10:16→21:52)
[2023-04-15 11:09] LABS: Base Excess -5.9 mmol/L (-2.0-2.0)
[2023-04-15] MEDS: PHENYLEPHRINE INJ 80 MG in SODIUM CHL 0.9% 242 ML IV SCH ×2 (12:18→23:31)
[2023-04-15] MEDS ORDERED: METOCLOPRAMIDE HCL 5MG/ml INJ 2ml VIAL IV PRN (14:00)
[2023-04-15] MEDS: ALBUMIN 25% 100 ML IV SCH ×2 (14:47→21:52)
[2023-04-15 19:48] LABS: Base Excess -9.2 mmol/L (-2.0-2.0)
[2023-04-15] MEDS ORDERED: SODIUM BICARBONATE 8.4 % INJ 50ML VIAL IV ONE (20:45)
[2023-04-16] VITALS (107 sets, daily range): BP systolic 71–151; BP diastolic 27–105; PULSE 105–119; RESP 25–26; TEMP 96.3–98.6; O2SAT 92–100
[2023-04-16] MEDS: LEVALBUTEROL HCL 1.25 MG/3 ML NEB NEB SCH ×4 (00:02→18:08)
[2023-04-16] MEDS: IPRATROPIUM BROM 0.5 MG/2.5ML INH SOL NEB SCH ×4 (00:02→18:07)
[2023-04-16] MEDS: FREE WATER GT SCH ×4 (00:09→17:02)
[2023-04-16] MEDS: VANCOMYCIN 1GM/250ML 250 ML IV SCH ×2 (00:13→18:00)
[2023-04-16] MEDS: ACCU-CHEK COMFORT CURVE STRIP VI SCH ×4 (00:13→17:03)
[2023-04-16] MEDS: VASOPRESSIN 20 UNITS in SODIUM CHL 0.9% 99 ML IV SCH ×3 (00:59→22:27)
[2023-04-16] MEDS: MEROPENEM 1GM IVPB 100 ML IV SCH ×3 (02:08→17:03)
[2023-04-16] MEDS: fentaNYL Drip 2500mCg/250mlNS 250 ML IV SCH ×3 (02:21→19:02)
[2023-04-16] MEDS: NOREPINEPHRINE BITARTRATE 32 MG in SODIUM CHL 0.9% 218 ML IV SCH (02:23)
[2023-04-16 04:08] LABS: Eosinophils # (auto) 0.1 10 ^3/uL (0-0.8); Hemoglobin 7.3 g/dL (12.2-16.2); Red Blood Cells 2.23 10^6/uL (4.0-5.20); White Blood Cell 18.9 10^3/uL (4.4-10.8)
[2023-04-16 04:12] LABS: Basophils # (auto) 0 10 ^3/uL (0-0.2); Basophils % (auto) 0.2 % (0.0-2.0); Eosinophils % (auto) 0.5 % (0.0-7.0); Hematocrit 23.2 % (36.0-46.0); Lymphocytes # (auto) 0.9 10 ^3/uL (0.4-5.4); Lymphocytes % (auto) 4.8 % (10.0-50.0); Mean Corpuscular Hemoglobin 32.8 pg (28.0-32.0); Mean Corpuscular Hgb Conc. 31.5 g/dL (32.0-36.0); Mean Corpuscular Volume 103.9 fL (80.0-100.0); Monocytes # (auto) 0.6 10 ^3/uL (0-1.3); Monocytes % (auto) 2.9 % (0.0-12.0); Neutrophils # (auto) 17.3 10 ^3/uL (1.6-8.6); Neutrophils % (auto) 91.6 % (37.0-80.0)
[2023-04-16 04:27] LABS: Nucleated Red Blood Cells % 3.5 %; Red Cell Distribution Width 20.7 % (11.8-14.3)
[2023-04-16 04:30] LABS: Calcium 6.6 mg/dL (8.5-10.1); Potassium 3.5 mmol/L (3.5-5.1)
[2023-04-16 04:32] LABS: BUN/Creatinine Ratio 15.3 (10.0-20.0)
[2023-04-16] MEDS: PROPOFOL 100 ML IV SCH ×3 (05:15→17:02)
[2023-04-16] MEDS: MIDAZOLAM DRIP 50 mg/50mL 50 ML IV SCH ×3 (05:15→22:13)
[2023-04-16] MEDS: SOD CHL 0.45% 1,000 ML IV SCH ×2 (05:40→08:09)
[2023-04-16] MEDS: ALBUMIN 25% 100 ML IV SCH (05:44)
[2023-04-16] MEDS: InsuLIN REG 1unit/0.01ml Soln (100units/ml) SC SCH ×4 (06:32→17:06)
[2023-04-16 09:01] LABS: Base Excess -8.2 mmol/L (-2.0-2.0)
[2023-04-16] MEDS: APIXABAN 5 MG TAB PO SCH ×2 (09:25→22:13)
[2023-04-16] MEDS: PANTOPRAZOLE 40 MG/10 ML VIAL INJ IV SCH (09:26)
[2023-04-16] MEDS: FUROSEMIDE 20 MG/2 ML VIAL IV SCH (09:26)
[2023-04-16] MEDS ORDERED: SODIUM BICARBONATE 8.4 % INJ 50ML VIAL IV ONE (09:45)
[2023-04-16] MEDS: PHENYLEPHRINE INJ 80 MG in SODIUM CHL 0.9% 242 ML IV SCH ×2 (10:00→20:31)
[2023-04-16] MEDS: BUDESONIDE (INHALATION) 0.5 MG/2 ML NEB NEB SCH ×2 (11:51→18:07)
[2023-04-16 12:18] LABS: Base Excess -3.9 mmol/L (-2.0-2.0)
[2023-04-16] MEDS: HYDROCORTISONE SOD SUCC 100 MG/2ML INJ VIAL IV SCH ×2 (14:52→22:13)
[2023-04-17] VITALS (103 sets, daily range): BP systolic 88–198; BP diastolic 20–161; PULSE 76–128; RESP 24–26; TEMP 97.2–98.2; O2SAT 0–100
[2023-04-17] MEDS: ACCU-CHEK COMFORT CURVE STRIP VI SCH ×4 (00:13→18:00)
[2023-04-17] MEDS: FREE WATER GT SCH ×4 (00:13→18:00)
[2023-04-17] MEDS: VASOPRESSIN 20 UNITS in SODIUM CHL 0.9% 99 ML IV SCH ×6 (00:13→20:46)
[2023-04-17] MEDS: LEVALBUTEROL HCL 1.25 MG/3 ML NEB NEB SCH ×4 (00:25→18:08)
[2023-04-17] MEDS: IPRATROPIUM BROM 0.5 MG/2.5ML INH SOL NEB SCH ×4 (00:25→18:08)
[2023-04-17] MEDS: SOD CHL 0.45% 1,000 ML IV SCH ×2 (01:06→21:40)
[2023-04-17] MEDS: PROPOFOL 100 ML IV SCH (01:37)
[2023-04-17] MEDS: MEROPENEM 1GM IVPB 100 ML IV SCH ×2 (02:35→10:06)
[2023-04-17] MEDS ORDERED: PHENYLEPHRINE IV 250 ML IV ONE (03:26)
[2023-04-17] MEDS ORDERED: PHENYLEPHRINE HCL 10 MG/ML VL ONE (03:31)
[2023-04-17] MEDS: PHENYLEPHRINE INJ 80 MG in SODIUM CHL 0.9% 242 ML IV SCH (04:09)
[2023-04-17] MEDS: fentaNYL Drip 2500mCg/250mlNS 250 ML IV SCH ×2 (04:54→16:13)
[2023-04-17] MEDS: HYDROCORTISONE SOD SUCC 100 MG/2ML INJ VIAL IV SCH ×3 (05:58→22:28)
[2023-04-17] MEDS: MIDAZOLAM DRIP 50 mg/50mL 50 ML IV SCH (05:58)
[2023-04-17] MEDS: InsuLIN REG 1unit/0.01ml Soln (100units/ml) SC SCH ×4 (06:00→18:00)
[2023-04-17] MEDS: BUDESONIDE (INHALATION) 0.5 MG/2 ML NEB NEB SCH ×2 (06:29→18:08)
[2023-04-17] MEDS: EPINEPHrine HCL 250 ML IV ONE (06:29)
[2023-04-17] MEDS: EPINEPHrine HCL 250 ML IV SCH (06:30)
[2023-04-17] MEDS: DEXTROSE (50%) 50ML SYRG IV PRN (06:56)
[2023-04-17] MEDS: NOREPINEPHRINE BITARTRATE 32 MG in SODIUM CHL 0.9% 218 ML IV SCH (06:57)
[2023-04-17 07:36] LABS: Hemoglobin 7.5 g/dL (12.2-16.2)
[2023-04-17 07:40] LABS: Hematocrit 24.1 % (36.0-46.0); Mean Corpuscular Hemoglobin 33.2 pg (28.0-32.0); Mean Corpuscular Volume 106.9 fL (80.0-100.0); Red Blood Cells 2.26 10^6/uL (4.0-5.20); White Blood Cell 19.3 10^3/uL (4.4-10.8)
[2023-04-17 07:43] LABS: Red Cell Distribution Width 21.5 % (11.8-14.3)
[2023-04-17 07:46] LABS: Basophils % (manual) 0 (0.0-2.0); Blast Cells 0; Eosinophils % (manual) 0 (0-7); Metamyelocytes % 0; Myelocytes % 0; Promyelocytes % 0; Reactive Lymphocytes 0
[2023-04-17 08:15] LABS: Albumin 2.1 g/dL (3.4-5.0); Calcium 6.4 mg/dL (8.5-10.1); Potassium 4.1 mmol/L (3.5-5.1)
[2023-04-17 08:18] LABS: BUN/Creatinine Ratio 9.2 (10.0-20.0); Bilirubin, Total 2.4 mg/dL (0.2-1.0); Total Protein 4.7 g/dL (6.4-8.2)
[2023-04-17 08:42] LABS: Band Neutrophils % (manual) 9; Lymphocytes % (manual) 2 (10.0-50.0); Monocytes % (manual) 1 (0-12)
[2023-04-17 08:44] LABS: Platelet Estimate Decreased
[2023-04-17] MEDS: APIXABAN 5 MG TAB PO SCH ×2 (09:30→22:28)
[2023-04-17] MEDS: FUROSEMIDE 20 MG/2 ML VIAL IV SCH (09:30)
[2023-04-17] MEDS: PANTOPRAZOLE 40 MG/10 ML VIAL INJ IV SCH (09:30)
[2023-04-17] MEDS ORDERED: SODIUM BICARBONATE 8.4 % INJ 50ML VIAL IV ONE ×4 (10:45→20:23)
[2023-04-17 11:34] LABS: Hematocrit 23.5 % (36.0-46.0); Hemoglobin 7.1 g/dL (12.2-16.2); Mean Corpuscular Hemoglobin 32.5 pg (28.0-32.0); Mean Corpuscular Hgb Conc. 30.1 g/dL (32.0-36.0); Red Blood Cells 2.17 10^6/uL (4.0-5.20); Red Cell Distribution Width 21.7 % (11.8-14.3); White Blood Cell 19.9 10^3/uL (4.4-10.8)
[2023-04-17 11:36] LABS: Basophils % (manual) 0 (0.0-2.0); Blast Cells 0; Eosinophils % (manual) 0 (0-7); Metamyelocytes % 0; Myelocytes % 0; Promyelocytes % 0; Reactive Lymphocytes 0
[2023-04-17 12:52] LABS: Band Neutrophils % (manual) 3; Lymphocytes % (manual) 4 (10.0-50.0); Monocytes % (manual) 2 (0-12)
[2023-04-17 12:53] LABS: Platelet Estimate Decreased
[2023-04-17] MEDS ORDERED: MEROPENEM 1GM IVPB 100 ML IV SCH (14:30)
[2023-04-17] MEDS ORDERED: SODIUM BICARBONATE 50ML VIAL 150 ML in D5W 5% 1,000 ML IV SCH (19:45)
[2023-04-17 23:53] LABS: Base Excess -15.1 mmol/L (-2.0-2.0)
[2023-04-18] VITALS (116 sets, daily range): BP systolic 76–146; BP diastolic 33–77; PULSE 113–119; RESP 24–29; TEMP 97.3–98.4; O2SAT 0–100
[2023-04-18] MEDS: EPINEPHrine HCL 250 ML IV SCH ×4 (00:09→20:22)
[2023-04-18] MEDS: PHENYLEPHRINE INJ 80 MG in SODIUM CHL 0.9% 242 ML IV SCH ×4 (00:10→23:25)
[2023-04-18] MEDS: NOREPINEPHRINE BITARTRATE 32 MG in SODIUM CHL 0.9% 218 ML IV SCH ×2 (00:10→17:01)
[2023-04-18] MEDS: ACCU-CHEK COMFORT CURVE STRIP VI SCH ×5 (00:12→23:30)
[2023-04-18] MEDS: LEVALBUTEROL HCL 1.25 MG/3 ML NEB NEB SCH ×4 (00:15→18:33)
[2023-04-18] MEDS: IPRATROPIUM BROM 0.5 MG/2.5ML INH SOL NEB SCH ×4 (00:15→18:33)
[2023-04-18] MEDS: DEXTROSE (50%) 50ML SYRG IV PRN ×3 (00:28→23:31)
[2023-04-18] MEDS: VASOPRESSIN 20 UNITS in SODIUM CHL 0.9% 99 ML IV SCH ×2 (03:01→15:01)
[2023-04-18 04:31] LABS: Mean Corpuscular Hemoglobin 32.7 pg (28.0-32.0); Mean Corpuscular Volume 108.9 fL (80.0-100.0); Red Blood Cells 1.84 10^6/uL (4.0-5.20); White Blood Cell 14.3 10^3/uL (4.4-10.8)
[2023-04-18 04:39] LABS: Band Neutrophils % (manual) 0; Basophils % (manual) 0 (0.0-2.0); Blast Cells 0; Eosinophils % (manual) 0 (0-7); Myelocytes % 0; Promyelocytes % 0; Reactive Lymphocytes 0
[2023-04-18 04:55] LABS: Albumin 1.7 g/dL (3.4-5.0); BUN/Creatinine Ratio 11.2 (10.0-20.0); Calcium 6.1 mg/dL (8.5-10.1); Potassium 4.3 mmol/L (3.5-5.1)
[2023-04-18 04:58] LABS: Bilirubin, Total 2.8 mg/dL (0.2-1.0)
[2023-04-18] MEDS: InsuLIN REG 1unit/0.01ml Soln (100units/ml) SC SCH ×5 (06:00→23:30)
[2023-04-18] MEDS: FREE WATER GT SCH ×5 (06:00→23:35)
[2023-04-18] MEDS: BUDESONIDE (INHALATION) 0.5 MG/2 ML NEB NEB SCH ×2 (06:06→18:33)
[2023-04-18] MEDS: SOD CHL 0.45% 1,000 ML IV SCH (06:06)
[2023-04-18] MEDS: HYDROCORTISONE SOD SUCC 100 MG/2ML INJ VIAL IV SCH ×3 (06:16→21:41)
[2023-04-18 07:19] LABS: Base Excess -20.6 mmol/L (-2.0-2.0)
[2023-04-18] MEDS: SODIUM BICARBONATE 50ML VIAL 150 ML in D5W 5% 1,000 ML IV SCH ×2 (08:00→21:42)
[2023-04-18 08:03] LABS: Lymphocytes % (manual) 3 (10.0-50.0); Metamyelocytes % 1; Monocytes % (manual) 4 (0-12)
[2023-04-18 08:04] LABS: Platelet Estimate Decreased
[2023-04-18] MEDS: APIXABAN 5 MG TAB PO SCH ×2 (09:29→21:35)
[2023-04-18] MEDS: FUROSEMIDE 20 MG/2 ML VIAL IV SCH (10:21)
[2023-04-18] MEDS: PANTOPRAZOLE 40 MG/10 ML VIAL INJ IV SCH (10:21)
[2023-04-18] MEDS: MEROPENEM 1GM IVPB 100 ML IV SCH ×2 (10:21→21:41)
[2023-04-18 11:31] LABS: Base Excess -10.8 mmol/L (-2.0-2.0)
[2023-04-18 11:47] LABS: Base Excess -15.6 mmol/L (-2.0-2.0)
[2023-04-18 11:53] LABS: Base Excess -17.3 mmol/L (-2.0-2.0)
[2023-04-18] MEDS: DEXTROSE 10% 1,000 ML IV SCH ×2 (12:36→21:43)
[2023-04-18] MEDS: PROPOFOL 100 ML IV SCH (14:14)
[2023-04-18] MEDS: MIDAZOLAM DRIP 50 mg/50mL 50 ML IV SCH (15:45)
[2023-04-18 16:40] LABS: Hematocrit 28.4 % (36.0-46.0); Hemoglobin 8.6 g/dL (12.2-16.2)
[2023-04-19] VITALS (110 sets, daily range): BP systolic 61–157; BP diastolic 32–113; PULSE 105–130; RESP 17–36; TEMP 97.2–98.6; O2SAT 29–98
[2023-04-19] MEDS: IPRATROPIUM BROM 0.5 MG/2.5ML INH SOL NEB SCH ×4 (00:02→18:15)
[2023-04-19] MEDS: LEVALBUTEROL HCL 1.25 MG/3 ML NEB NEB SCH ×4 (00:02→18:15)
[2023-04-19] MEDS: EPINEPHrine HCL 250 ML IV SCH ×2 (02:42→23:34)
[2023-04-19] MEDS: VASOPRESSIN 20 UNITS in SODIUM CHL 0.9% 99 ML IV SCH ×3 (02:44→22:49)
[2023-04-19 04:24] LABS: Hematocrit 25.9 % (36.0-46.0); Mean Corpuscular Hemoglobin 31.7 pg (28.0-32.0); Mean Corpuscular Hgb Conc. 30.9 g/dL (32.0-36.0); Mean Corpuscular Volume 102.5 fL (80.0-100.0); Red Blood Cells 2.53 10^6/uL (4.0-5.20); White Blood Cell 15.3 10^3/uL (4.4-10.8)
[2023-04-19 04:30] LABS: Red Cell Distribution Width 20.6 % (11.8-14.3)
[2023-04-19 04:31] LABS: Basophils % (manual) 0 (0.0-2.0); Blast Cells 0; Eosinophils % (manual) 0 (0-7); Myelocytes % 0; Reactive Lymphocytes 0
[2023-04-19 05:25] LABS: Potassium 4.7 mmol/L (3.5-5.1)
[2023-04-19 05:28] LABS: Bilirubin, Total 1.8 mg/dL (0.2-1.0); Total Protein 1.7 g/dL (6.4-8.2)
[2023-04-19 05:59] LABS: Albumin 0.7 g/dL (3.4-5.0); Calcium 5.2 mg/dL (8.5-10.1)
[2023-04-19] MEDS: FREE WATER GT SCH ×4 (06:10→22:50)
[2023-04-19] MEDS: BUDESONIDE (INHALATION) 0.5 MG/2 ML NEB NEB SCH ×2 (06:17→18:15)
[2023-04-19] MEDS: ACCU-CHEK COMFORT CURVE STRIP VI SCH ×4 (06:28→23:38)
[2023-04-19] MEDS: InsuLIN REG 1unit/0.01ml Soln (100units/ml) SC SCH ×4 (06:30→23:47)
[2023-04-19] MEDS: PHENYLEPHRINE INJ 80 MG in SODIUM CHL 0.9% 242 ML IV SCH ×3 (06:39→21:08)
[2023-04-19] MEDS: HYDROCORTISONE SOD SUCC 100 MG/2ML INJ VIAL IV SCH ×3 (06:49→22:10)
[2023-04-19 07:19] LABS: Base Excess -15.3 mmol/L (-2.0-2.0)
[2023-04-19] MEDS: DEXTROSE 10% 1,000 ML IV SCH (07:23)
[2023-04-19] MEDS ORDERED: CALCIUM GLUC 1,000mg/50ml-NS 50 ML IV ONE (08:00)
[2023-04-19] MEDS: ALBUMIN 25% 100 ML IV SCH ×3 (08:14→23:38)
[2023-04-19] MEDS: SODIUM BICARBONATE 50ML VIAL 150 ML in D5W 5% 1,000 ML IV SCH ×3 (09:25→20:35)
[2023-04-19] MEDS: APIXABAN 5 MG TAB PO SCH ×2 (10:00→21:44)
[2023-04-19] MEDS: NOREPINEPHRINE BITARTRATE 32 MG in SODIUM CHL 0.9% 218 ML IV SCH (10:09)
[2023-04-19] MEDS: FUROSEMIDE 20 MG/2 ML VIAL IV SCH (10:35)
[2023-04-19] MEDS: PANTOPRAZOLE 40 MG/10 ML VIAL INJ IV SCH (10:35)
[2023-04-19 10:54] LABS: Base Excess -15.3 mmol/L (-2.0-2.0)
[2023-04-19] MEDS: MEROPENEM 500MG IVPB 50 ML IV SCH ×2 (11:04→22:10)
[2023-04-19 12:13] LABS: Band Neutrophils % (manual) 9; Lymphocytes % (manual) 8 (10.0-50.0); Metamyelocytes % 1; Monocytes % (manual) 3 (0-12); Platelet Estimate Decreased; Promyelocytes % 1
[2023-04-19] MEDS ORDERED: VANCOMYCIN 500 MG in D5W 5% 100 ML IV ONE (14:00)
[2023-04-19] MEDS: PROPOFOL 100 ML IV SCH (14:15)
[2023-04-19] MEDS: fentaNYL Drip 2500mCg/250mlNS 250 ML IV SCH (15:26)
[2023-04-19] MEDS: MIDAZOLAM DRIP 50 mg/50mL 50 ML IV SCH (15:45)
[2023-04-19 21:49] LABS: Base Excess -16.3 mmol/L (-2.0-2.0)
[2023-04-19] MEDS ORDERED: SODIUM BICARBONATE 8.4 % INJ 50ML VIAL IV ONE (22:00)
[2023-04-19] MEDS ORDERED: SODIUM BICARBONATE 50ML VIAL 150 ML in D5W 5% 1,000 ML IV SCH (22:00)
[2023-04-19] MEDS ORDERED: SODIUM BICARBONATE 8.4% INJ 50ML SYRINGE ONE (22:23)
[2023-04-20] VITALS (83 sets, daily range): BP systolic 0–145; BP diastolic 0–93; PULSE 67–153; RESP 23–82; TEMP 92.4–95.4; O2SAT 28–97
[2023-04-20] MEDS: IPRATROPIUM BROM 0.5 MG/2.5ML INH SOL NEB SCH ×3 (00:10→12:06)
[2023-04-20] MEDS: LEVALBUTEROL HCL 1.25 MG/3 ML NEB NEB SCH ×3 (00:10→12:06)
[2023-04-20 00:36] LABS: Base Excess -17.8 mmol/L (-2.0-2.0)
[2023-04-20] MEDS ORDERED: SODIUM BICARBONATE 8.4 % INJ 50ML VIAL IV ONE ×3 (01:02→05:25)
[2023-04-20] MEDS: SODIUM BICARBONATE 50ML VIAL 150 ML in D5W 5% 1,000 ML IV SCH ×3 (01:15→12:43)
[2023-04-20] MEDS: PHENYLEPHRINE INJ 80 MG in SODIUM CHL 0.9% 242 ML IV SCH ×2 (04:00→12:11)
[2023-04-20] MEDS: NOREPINEPHRINE BITARTRATE 32 MG in SODIUM CHL 0.9% 218 ML IV SCH (04:00)
[2023-04-20 04:17] LABS: Basophils # (auto) 0.1 10 ^3/uL (0-0.2)
[2023-04-20 04:20] LABS: Basophils % (auto) 0.4 % (0.0-2.0); Eosinophils # (auto) 0.1 10 ^3/uL (0-0.8); Eosinophils % (auto) 0.9 % (0.0-7.0); Hematocrit 17.5 % (36.0-46.0); Lymphocytes # (auto) 0.5 10 ^3/uL (0.4-5.4); Lymphocytes % (auto) 3.6 % (10.0-50.0); Mean Corpuscular Hemoglobin 31.5 pg (28.0-32.0); Mean Corpuscular Hgb Conc. 30.8 g/dL (32.0-36.0); Mean Corpuscular Volume 102.3 fL (80.0-100.0); Monocytes # (auto) 0.7 10 ^3/uL (0-1.3); Monocytes % (auto) 4.8 % (0.0-12.0); Neutrophils # (auto) 12.6 10 ^3/uL (1.6-8.6); Neutrophils % (auto) 90.3 % (37.0-80.0); Red Blood Cells 1.71 10^6/uL (4.0-5.20)
[2023-04-20 04:30] LABS: Potassium 4.2 mmol/L (3.5-5.1)
[2023-04-20 04:33] LABS: BUN/Creatinine Ratio 11.7 (10.0-20.0)
[2023-04-20 04:44] LABS: Nucleated Red Blood Cells % 4.6 %
[2023-04-20 04:45] LABS: Hemoglobin 5.4 g/dL (12.2-16.2); Red Cell Distribution Width 21.1 % (11.8-14.3)
[2023-04-20 04:47] LABS: Calcium 5.3 mg/dL (8.5-10.1)
[2023-04-20] MEDS: FREE WATER GT SCH ×2 (05:08→11:39)
[2023-04-20 05:21] LABS: Anisocytosis Slight; Large Platelets FEW; Macrocytosis Slight; Ovalocytes FEW; Platelet Estimate Decreased; Stomatocytes Few
[2023-04-20 05:22] LABS: Polychromasia Slight
[2023-04-20] MEDS: BUDESONIDE (INHALATION) 0.5 MG/2 ML NEB NEB SCH (05:40)
[2023-04-20] MEDS: EPINEPHrine HCL 250 ML IV SCH ×2 (06:21→12:44)
[2023-04-20] MEDS: HYDROCORTISONE SOD SUCC 100 MG/2ML INJ VIAL IV SCH ×2 (06:21→14:58)
[2023-04-20] MEDS: ACCU-CHEK COMFORT CURVE STRIP VI SCH ×2 (06:21→12:24)
[2023-04-20] MEDS: InsuLIN REG 1unit/0.01ml Soln (100units/ml) SC SCH ×2 (06:30→12:36)
[2023-04-20 06:32] LABS: Base Excess -21.1 mmol/L (-2.0-2.0)
[2023-04-20] MEDS: CALCIUM GLUC 1,000mg/50ml-NS 50 ML IV SCH ×2 (06:40→07:44)
[2023-04-20] MEDS: PANTOPRAZOLE 40 MG/10 ML VIAL INJ IV SCH (08:54)
[2023-04-20] MEDS: FUROSEMIDE 20 MG/2 ML VIAL IV SCH (08:54)
[2023-04-20] MEDS: APIXABAN 5 MG TAB PO SCH (10:00)
[2023-04-20] MEDS ORDERED: ALBUMIN 25% 100 ML IV SCH (11:45)
[2023-04-20] MEDS: MEROPENEM 500MG IVPB 50 ML IV SCH (12:24)
[2023-04-20] MEDS ORDERED: METOCLOPRAMIDE HCL 5MG/ml INJ 2ml VIAL IV SCH (14:00)
[2023-04-20] MEDS: fentaNYL Drip 2500mCg/250mlNS 250 ML IV SCH (14:15)
[2023-04-20 17:11] LABS: Hematocrit 19.5 % (36.0-46.0)
[2023-04-20 17:16] LABS: Hemoglobin 5.6 g/dL (12.2-16.2)
[2023-04-20] MEDS ORDERED: NALOXONE HCL 1MG/ML 2ML SYRINGE IV ONE (20:54)
[2023-04-20] MEDS ORDERED: CALCIUM CHLOR(10%) 100MG/ML 10ML SYRINGE IV ONE (20:54)
[2023-04-20] MEDS ORDERED: EPINEPHrine HCL 1 MG/10 ML SYRG IV ONE (20:54)
== END 2023-04-20 20:55 | DRG 870 ==
LOC: EDBD 00:44 → ER 00:47 → TELE 05:16 → ICU WEST 11:45
PROVIDERS: ADMIT Internal Medicine Pulmonary Disease; ATTEND Internal Medicine Pulmonary Disease
PROC: 5A1955Z Respiratory Ventilation, Greater than 96 Consecutive Hours (ICD-10-PCS; principal; 2023-03-30)
PROC: 0BH17EZ Insertion of Endotracheal Airway into Trachea, Via Natural or Artificial Opening (ICD-10-PCS; 2023-03-30)
PROC: 02H633Z Insertion of Infusion Device into Right Atrium, Percutaneous Approach (ICD-10-PCS; 2023-04-05)
PROC: B548ZZA Ultrasonography of Superior Vena Cava, Guidance (ICD-10-PCS; 2023-04-05)
PROC: 5A0935A Assistance with Respiratory Ventilation, Less than 24 Consecutive Hours, High Flow/Velocity Cannula (ICD-10-PCS; 2023-04-10)
PROC: 5A0935A Assistance with Respiratory Ventilation, Less than 24 Consecutive Hours, High Flow/Velocity Cannula (ICD-10-PCS; 2023-04-11)
PROC: 30233N1 Transfusion of Nonautologous Red Blood Cells into Peripheral Vein, Percutaneous Approach (ICD-10-PCS; 2023-04-11)
PROC: 5A0945A Assistance with Respiratory Ventilation, 24-96 Consecutive Hours, High Flow/Velocity Cannula (ICD-10-PCS; 2023-04-12)
PROC: 5A1955Z Respiratory Ventilation, Greater than 96 Consecutive Hours (ICD-10-PCS; 2023-04-13)
PROC: 5A12012 Performance of Cardiac Output, Single, Manual (ICD-10-PCS; 2023-04-20)
DX: A41.9 Sepsis, unspecified organism (principal); E43 Unspecified severe protein-calorie malnutrition; R65.21 Severe sepsis with septic shock; J96.01 Acute respiratory failure with hypoxia; J18.9 Pneumonia, unspecified organism; N17.0 Acute kidney failure with tubular necrosis; G93.41 Metabolic encephalopathy; I50.41 Acute combined systolic (congestive) and diastolic (congestive) heart failure; I13.0 Hypertensive heart and chronic kidney disease with heart failure and stage 1 through stage 4 chronic kidney disease, or unspecified chronic kidney disease; I47.1 Supraventricular tachycardia; D62 Acute posthemorrhagic anemia; I46.9 Cardiac arrest, cause unspecified; Z20.822 Contact with and (suspected) exposure to COVID-19; E11.22 Type 2 diabetes mellitus with diabetic chronic kidney disease; F17.210 Nicotine dependence, cigarettes, uncomplicated; N18.30 Chronic kidney disease, stage 3 unspecified; E66.9 Obesity, unspecified; E11.649 Type 2 diabetes mellitus with hypoglycemia without coma; Z79.899 Other long term (current) drug therapy; Z68.28 Body mass index [BMI] 28.0-28.9, adult; Z82.49 Family history of ischemic heart disease and other diseases of the circulatory system; Z83.3 Family history of diabetes mellitus
CPT/HCPCS: 31500; 36415; 36556; 36600; 70450; 71045; 71250; 71275; 72125; 74018; 74176; 76705; 80048; 80053; 80061; 80202; 81001; 82140; 82270; 82565; 82570; 82805; 82962; 83036; 83605; 83690; 83735; 83880; 83930; 84100; 84156; 84300; 84443; 84484; 84702; 85007; 85014; 85018; 85025; 85027; 85379; 86850; 86900; 86901; 86920; 87040; 87070; 87077; 87081; 87086; 87186; 87205; 92610; 92950; 93005; 93306; 93970; 94002; 94003; 94640; 96365; 96367; 96368; 96375; A4618; C9113; G0378; J0171; J0692; J0696; J1815; J2001; J2185; J2250; J2543; J2704; J3480; J7060; P9047